=== PATIENT | male | born 1980 | race Caucasian/White ===

== ENCOUNTER 2018-06-11 11:13 | Inpatient (IN) | payer MEDICARE, MEDICAID ==
[~2018-06-11] VITALS: Ht 167.6 cm; Wt 103.1 kg
[2018-06-11] MEDS ORDERED: VANCOMYCIN INJECTION 1,000 MG in NS (IVPB) 250 ML IV STA (11:25)
[2018-06-11] MEDS ORDERED: LIDOCAINE 1% INJ 20 ML 20 ML VIAL INJ ONE (11:30)
[2018-06-11] MEDS ORDERED: AMPICILLIN/SULBACTAM INJECTION 3 GM in NS (IVPB) 100 ML IV ONE (11:30)
[2018-06-11] MEDS ORDERED: TETANUS,DIPTH,PERTUSS P/F (BOOSTRIX) 0.5 ML VIAL IM ONE (11:30)
[2018-06-11] MEDS ORDERED: KETOROLAC 30 MG/ML VIAL IVP ONE (11:30)
[2018-06-11] MEDS ORDERED: VANCOMYCIN 1000 MG/VIAL ONE (11:31)
--- NOTE | 2018-06-11 11:31 | ED Integumentary General ---
General Chief Complaint: Skin/Wound Problems Stated Complaint: RT ARM WOUND CHECK Source: patient, family Exam Limitations: no limitations History of Present Illness Date Seen by Provider: Jun 11, 2018 Time Seen by Provider: 11:15 Initial Comments The patient presents to ER by private conveyance with his parents and chief complaint that for little over a week he's had an abscess that opened up and started draining a couple days ago. They put him on some Bactrim that they had around the house but has progressively gotten worse. It started out on his right forearm and now has swelling and redness in his hand. He's been using Tylenol for pain control. He's had fevers above 101 according to mom. He is not having any nausea. No history of diabetes or immune system incompetence. He does not take any routine medicines. He does have a history of an abscess on the same arm years ago that got so bad that he had to have stitches to put the muscle tissue back together. He does not recall having a tetanus shot the last 5 years. He has no allergies to medicines. He does not smoke drink or use recreational drugs. Allergies and Home Medications Allergies Coded Allergies: No Known Drug Allergies (Unverified , 06/11/18) Home Medications Acetaminophen 500 Mg Tablet, 500-1,000 MG PO Q4H PRN for PAIN-MILD, (Reported) Patient Home Medication List Home Medication List Reviewed: Yes Review of Systems Review of Systems Constitutional: chills, fever, malaise EENTM: No ear discharge, No ear pain Respiratory: No cough, No phlegm Cardiovascular: No chest pain, No edema Gastrointestinal: No abdominal pain, No constipation, No diarrhea Genitourinary: No discharge, No dysuria Musculoskeletal: No back pain, No joint pain Skin: No pruritus, No rash Past Txdjjlg-Rcgbjl-Mlmfud Hx Patient Social History Alcohol Use: Denies Use Recreational Drug Use: No Smoking Status: Never a Smoker Physical Abuse: No Sexual Abuse: No Mistreated: No Past Medical History Surgeries: Yes (foot surgery, ) Orthopedic Physical Exam Vital Signs Vital Signs - First Documented 06/11/18 11:20 Temp 98.0 Pulse 88 Resp 18 B/P (MAP) 157/89 (111) Pulse Ox 100 Capillary Refill : General Appearance: WD/WN, no apparent distress HEENT: PERRL/EOMI, pharynx normal Cardiovascular: normal peripheral pulses, regular rate, rhythm (heart rate is 89), no edema Respiratory: no respiratory distress, no accessory muscle use Extremities: other (right upper extremity has swelling of the hand erythema and cellulitis of the distal right upper extremity as well as large opening with necrotic tissue surrounding a 1 x 2 cm opening that expresses purulence. There is a large area approximately 30% of the surface of the right forearm involvement with edema, erythema and tenderness to palpation.) Neurologic/Psychiatric: alert, oriented x 3 Procedures/Interventions I&D : Site: right forearm Blade Size: blunt dissection I & D Procedure: no betadine prep (chlorhexidine prep) Progress Patient's wound was already open and had drained by the time he came to us yesterday. We clean the site thoroughly using for exiting preps and then injected a ring block of lidocaine 4 cc around the opening. We then put 2 cc of the 1% lidocaine without epinephrine directly into the wound as a flush. After the lidocaine had a chance to work we then placed a sterile culture probe directly into the wound deep to obtain a sample and then used cotton tipped sterile swabs to remove about 5 cc of purulent/necrotic tissue. The wound was probed and loculations were broken up. There is not much purulence expressed but there is edema. We then flushed the wound thoroughly using approximately 500 cc of sterile saline. Patient tolerated the procedure okay. Toradol given for his discomfort. Progress/Results/Core Measures Results/Orders Lab Results Laboratory Tests Test 06/11/18 12:18 Range/Units White Blood Count 16.5 H 4.3-11.0 10^3/uL Red Blood Count 4.53 4.35-5.85 10^6/uL Hemoglobin 12.4 L 13.3-17.7 G/DL Hematocrit 37 L 40-54 % Mean Corpuscular Volume 81 80-99 FL Mean Corpuscular Hemoglobin 27 25-34 PG Mean Corpuscular Hemoglobin Concent 34 32-36 G/DL Red Cell Distribution Width 12.8 10.0-14.5 % Platelet Count 189 130-400 10^3/uL Mean Platelet Volume 9.5 7.4-10.4 FL Neutrophils (%) (Auto) 31 L 42-75 % Lymphocytes (%) (Auto) 64 H 12-44 % Monocytes (%) (Auto) 3 0-12 % Eosinophils (%) (Auto) 1 0-10 % Basophils (%) (Auto) 0 0-10 % Neutrophils # (Auto) 5.1 1.8-7.8 X 10^3 Lymphocytes # (Auto) 10.6 H 1.0-4.0 X 10^3 Monocytes # (Auto) 0.5 0.0-1.0 X 10^3 Eosinophils # (Auto) 0.2 0.0-0.3 10^3/uL Basophils # (Auto) 0.1 0.0-0.1 10^3/uL Neutrophils % (Manual) 25 % Lymphocytes % (Manual) 69 % Monocytes % (Manual) 3 % Eosinophils % (Manual) 1 % Basophils % (Manual) 1 % Band Neutrophils 1 % Blood Morphology Comment NORMAL Absolute Reticulocyte Count 24-90 10e9/L Percent Reticulocyte Count 0.50-2.40 % Prothrombin Time 14.0 12.2-14.7 SEC INR Comment 1.1 0.8-1.4 Activated Partial Thromboplast Time 29 24-35 SEC Sodium Level 137 135-145 MMOL/L Potassium Level 4.3 3.6-5.0 MMOL/L Chloride Level 101 98-107 MMOL/L Carbon Dioxide Level 25 21-32 MMOL/L Anion Gap 11 5-14 MMOL/L Blood Urea Nitrogen 9 7-18 MG/DL Creatinine 0.88 0.60-1.30 MG/DL Estimat Glomerular Filtration Rate > 60 BUN/Creatinine Ratio 10 Glucose Level 96 70-105 MG/DL Lactic Acid Level 0.82 0.50-2.00 MMOL/L Calcium Level 8.4 L 8.5-10.1 MG/DL Corrected Calcium 8.9 8.5-10.1 MG/DL Total Bilirubin 0.3 0.1-1.0 MG/DL Aspartate Amino Transf (AST/SGOT) 18 5-34 U/L Alanine Aminotransferase (ALT/SGPT) 23 0-55 U/L Alkaline Phosphatase 61 40-136 U/L Total Protein 6.6 6.4-8.2 GM/DL Albumin 3.4 3.2-4.5 GM/DL My Orders Orders - NILES ALVARADO Cbc With Automated Diff (06/11/18 11:25) Comprehensive Metabolic Panel (06/11/18 11:25) Dipht,Pertuss(Acell),Tet Adult (Boostrix (06/11/18 11:30) Ketorolac Injection (Toradol Injection) (06/11/18 11:30) Saline Lock/Iv-Start (06/11/18 11:25) Lidocaine 1% Inj 20 Ml (Xylocaine 1% Inj (06/11/18 11:30) Vancomycin Injection (Vancomycin Injecti (06/11/18 11:25) Ampicillin/Sulbactam Injection (Unasyn 3 (06/11/18 11:30) Lactic Acid Analyzer (06/11/18 11:31) Blood Culture (06/11/18 11:31) Vancomycin Injection (Vancomycin Injecti (06/11/18 11:31) Wound Culture (06/11/18 11:36) Ns (Ivpb) (Sodium Chloride 0.9%) (06/11/18 12:23) Manual Differential (06/11/18 12:18) Protime With Inr (06/11/18 12:40) Partial Thromboplastin Time (06/11/18 12:40) Vital Signs Adult Sepsis Patie Q15M (06/11/18 12:40) Remove Rings In Anticipation O (06/11/18 12:40) Ns Iv 1000 Ml (Sodium Chloride 0.9%) (06/11/18 12:40) Forearm 2 View Right (06/11/18 13:18) Oxycodone/Apap 5/325mg Tablet (Percocet (06/11/18 13:57) Oxycodone/Apap 5/325mg Tablet (Percocet (06/11/18 14:00) Medications Given in ED Current Medications Medications Dose Ordered Sig/Tone Route Start Time Stop Time Status Last Admin Dose Admin Ampicillin Sodium/ Sulbactam Sodium 3 gm/Sodium Chloride 100 ml @ 200 mls/hr ONCE ONCE IV 06/11/18 11:30 06/11/18 11:59 DC 06/11/18 12:51 200 MLS/HR Diphtheria/ Tetanus/Acell Pertussis 0.5 ml ONCE ONCE IM 06/11/18 11:30 06/11/18 11:31 DC 06/11/18 13:00 0.5 ML Ketorolac Tromethamine 30 mg ONCE ONCE IVP 06/11/18 11:30 06/11/18 11:31 DC 06/11/18 12:47 30 MG Lidocaine HCl 20 ml ONCE ONCE INJ 06/11/18 11:30 06/11/18 11:31 DC 06/11/18 12:59 20 ML Oxycodone/ Acetaminophen 1 tab ONCE ONCE PO 06/11/18 14:00 06/11/18 15:32 DC 06/11/18 14:03 1 TAB Vital Signs/I&O 06/11/18 11:20 Temp 98.0 Pulse 88 Resp 18 B/P (MAP) 157/89 (111) Pulse Ox 100 Progress Progress Note : Time: 11:35 Progress Note Plan to infiltrate the wound opening with lidocaine and attempted to probe gently using sterile cotton tip swabs. We will obtain a wound culture. We'll obtain blood cultures and basic labs. Vital signs are aseptic at this time but he is using Tylenol which could be masking a fever. We'll start with Toradol for his discomfort. Plan to initiate vancomycin and Unasyn. If his white count is elevated we will initiate some IV fluids as well as blood pressure is okay 157/89. Initial ECG Rate: 84 Diagnostic Imaging Diagonstic Imaging: Xray Plain Films/CT/US/NM/MRI: forearm Comments No acute osseous abnormality. No destructive lesions. Soft tissue swelling and edema seen. NAME: OMAR JONES MED REC#: [id number] PT STATUS: REG ER : 1980 PHYSICIAN: NILES ALVARADO MD ADMIT DATE: 06/11/18/ER FS Draft Date of Exam:06/11/18 FOREARM 2 VIEW RIGHT INDICATION: Abscess on forearm. TECHNIQUE: Two views of the right forearm. CORRELATION STUDY: None. FINDINGS: The radius and ulna have an unremarkable appearance. The visualized portions of the elbow and wrist are unremarkable. There is rather pronounced soft tissue edema and swelling suggested about the forearm, most pronounced at the proximal aspect. No definitive abnormal gas collection or radiographic evidence of a foreign body. IMPRESSION: Negative for acute bony abnormality of the forearm. Rather pronounced soft tissue swelling appears to be present at the proximal forearm. Dictated on workstation # [id number] Dict: 06/11/18 1338 Trans: 06/11/18 1355 [id number] Interpreted by: TREVOR FRAUSTO DO Electronically signed by: Reviewed: Reviewed by Me Departure Impression Primary Impression: Abscess Additional Impressions: Cellulitis Qualified Codes: L03.113 - Cellulitis of right upper limb Sepsis Qualified Codes: A41.9 - Sepsis, unspecified organism Disposition: XFER SHT-TRM HOSP Condition: Stable Admissions Decision to Admit Reason: Admit from ER (General) Decision to Admit/Date: Jun 11, 2018 Time/Decision to Admit Time: 13:00 Transfer Time Spoke to Accepting Phy: 13:[address] Belle Agreed to admit with surgical consult. Discussed case with Dr. Gonzalez and he agreed to do a surgical consult. Transfer Time: 14:27 Transfer Facility: [facility] [place], [place] Method of Transfer: EMS Departure-Patient Inst. Referrals: ANNA TALLEY MD (PCP/Family) Primary Care Physician NILES ALVARADO Jun 11, 2018 11:31
[2018-06-11] MEDS ORDERED: NS (IVPB) 250 ML ONE (12:23)
[2018-06-11 12:31] LABS: HEMOGLOBIN 12.4 G/DL (13.3-17.7); MEAN CORPUSCULAR HEMOGLOBIN 27 PG (25-34); WHITE BLOOD COUNT 16.5 10^3/uL (4.3-11.0)
[2018-06-11 12:32] LABS: BASOPHILS # (AUTO) 0.1 10^3/uL (0.0-0.1); BASOPHILS % (AUTO) 0 % (0-10); EOSINOPHILS # (AUTO) 0.2 10^3/uL (0.0-0.3); EOSINOPHILS % (AUTO) 1 % (0-10); HEMATOCRIT 37 % (40-54); LYMPHOCYTES # (AUTO) 10.6 X 10^3 (1.0-4.0); LYMPHOCYTES % (AUTO) 64 % (12-44); MEAN CORPUSCULAR HGB CONC 34 G/DL (32-36); MEAN CORPUSCULAR VOLUME 81 FL (80-99); MEAN PLATELET VOLUME 9.5 FL (7.4-10.4); MONOCYTES # (AUTO) 0.5 X 10^3 (0.0-1.0); MONOCYTES % (AUTO) 3 % (0-12); NEUTROPHILS # (AUTO) 5.1 X 10^3 (1.8-7.8); NEUTROPHILS % (AUTO) 31 % (42-75); PLATELET COUNT 189 10^3/uL (130-400); RED CELL DISTRIBUTION WIDTH 12.8 % (10.0-14.5)
[2018-06-11 12:52] LABS: ALANINE AMINOTRANSFERASE 23 U/L (0-55); ALBUMIN 3.4 GM/DL (3.2-4.5); ALKALINE PHOSPHATASE 61 U/L (40-136); BILIRUBIN,TOTAL 0.3 MG/DL (0.1-1.0); BUN/CREATININE RATIO 10; CALCIUM 8.4 MG/DL (8.5-10.1); CARBON DIOXIDE 25 MMOL/L (21-32); CHLORIDE 101 MMOL/L (98-107); CREATININE SERUM 0.88 MG/DL (0.60-1.30); GFR ESTIMATED > 60; GLUCOSE 96 MG/DL (70-105); POTASSIUM 4.3 MMOL/L (3.6-5.0); SODIUM 137 MMOL/L (135-145); TOTAL PROTEIN 6.6 GM/DL (6.4-8.2)
[2018-06-11 13:07] LABS: BAND NEUTROPHILS 1 %; BASOPHILS % (MANUAL) 1 %; EOSINOPHILS % (MANUAL) 1 %; LYMPHOCYTES % (MANUAL) 69 %; MONOCYTES % (MANUAL) 3 %; NEUTROPHILS % (MANUAL) 25 %; RBC MORPH NORMAL
[2018-06-11 13:09] LABS: INR 1.1 (0.8-1.4)
[2018-06-11] MEDS: NS IV 1000 ML 1,000 ML IV SCH ×2 (13:15→14:05)
--- NOTE | 2018-06-11 13:56 | Diagnostic Imaging Report ---
INDICATION: Abscess on forearm. TECHNIQUE: Two views of the right forearm. CORRELATION STUDY: None. FINDINGS: The radius and ulna have an unremarkable appearance. The visualized portions of the elbow and wrist are unremarkable. There is rather pronounced soft tissue edema and swelling suggested about the forearm, most pronounced at the proximal aspect. No definitive abnormal gas collection or radiographic evidence of a foreign body. IMPRESSION: Negative for acute bony abnormality of the forearm. Rather pronounced soft tissue swelling appears to be present at the proximal forearm. Dictated by: Dictated on workstation # [id number]
[2018-06-11] MEDS ORDERED: oxyCODONE/APAP 5/325MG (PERCOCET 5) TABLET ONE (13:57)
[2018-06-11] MEDS ORDERED: oxyCODONE/APAP 7.5-325 MG (PERCOCET 7.5) TABLET PO ONE (14:00)
[2018-06-11] MEDS ORDERED: oxyCODONE/APAP 5/325MG (PERCOCET 5) TABLET PO ONE (14:00)
--- NOTE | 2018-06-11 14:27 | NUR ---
Patient transferred at this time via [facility] to [facility].
[2018-06-11 15:13] VITALS: BP 159/90
[2018-06-11 15:19] VITALS: BP 158/90
[2018-06-11] MEDS ORDERED: VANCOMYCIN 1500 MG/NS 500 ML IVPB IV NR ×2 (15:34)
[2018-06-11] MEDS ORDERED: ONDANSETRON 4 MG/2 ML (SDV) Z0FRAN IV PRN (15:45)
[2018-06-11] MEDS ORDERED: KETOROLAC 15 MG/ML VIAL IV PRN (15:45)
[2018-06-11] MEDS ORDERED: ACETAMINOPHEN 325 MG TABLET PO PRN (15:45)
[2018-06-11] MEDS ORDERED: ACET-2267 PO (15:49)
--- NOTE | 2018-06-11 15:49 | NUR ---
VANCOMYCIN PHARMACY TO DOSE: BASED ON ADJ BW 79.5 & SCr 0.88, EST CrCl 127 LOADING DOSE: 1 GM GIVEN IN ED, ORDERED ADDITIONAL 1,500 MG. MAIN DOSE: 1,500 MG IV Q12HR VANCOMYCIN TROUGH ORDERED FOR 06/13/18 @ 02:00 IF TROUGH IS GREATER THAN 20 HOLD 06/13/18 03:00 DOSE.
[2018-06-11] MEDS: fentaNYL INJECTION 100 MCG/2 ML AMP IV PRN ×2 (16:22→23:30)
[2018-06-11 16:27] LABS: HEMATOCRIT 37 % (40-54); HEMOGLOBIN 12.4 G/DL (13.3-17.7); MEAN CORPUSCULAR HEMOGLOBIN 27 PG (25-34); MEAN CORPUSCULAR HGB CONC 34 G/DL (32-36); MEAN CORPUSCULAR VOLUME 81 FL (80-99); WHITE BLOOD COUNT 16.5 10^3/uL (4.3-11.0)
[2018-06-11 16:28] LABS: BASOPHILS # (AUTO) 0.1 10^3/uL (0.0-0.1); BASOPHILS % (AUTO) 0 % (0-10); EOSINOPHILS # (AUTO) 0.2 10^3/uL (0.0-0.3); EOSINOPHILS % (AUTO) 1 % (0-10); LYMPHOCYTES # (AUTO) 10.6 X 10^3 (1.0-4.0); LYMPHOCYTES % (AUTO) 64 % (12-44); MEAN PLATELET VOLUME 9.5 FL (7.4-10.4); MONOCYTES # (AUTO) 0.5 X 10^3 (0.0-1.0); MONOCYTES % (AUTO) 3 % (0-12); NEUTROPHILS # (AUTO) 5.1 X 10^3 (1.8-7.8); NEUTROPHILS % (AUTO) 31 % (42-75); PLATELET COUNT 189 10^3/uL (130-400); RED CELL DISTRIBUTION WIDTH 12.8 % (10.0-14.5)
[2018-06-11 16:30] VITALS: BP 160/110
[2018-06-11 16:33] LABS: BAND NEUTROPHILS 1 %; BASOPHILS % (MANUAL) 1 %; EOSINOPHILS % (MANUAL) 1 %; LYMPHOCYTES % (MANUAL) 69 %; MONOCYTES % (MANUAL) 3 %; NEUTROPHILS % (MANUAL) 25 %; RBC MORPH NORMAL
[2018-06-11] MEDS: ceFAZolin 2 GM/50 ML PRE-MIXED IVPB IV SCH ×2 (16:48→23:30)
[2018-06-11 16:50] VITALS: BP 142/99
[2018-06-11] MEDS: LACTATED RINGERS 1,000 ML IV SCH (18:34)
--- NOTE | 2018-06-11 18:47 | Consultation ---
History of Present Illness History of Present Illness Patient Consulted On(mayte/time) 06/11/18 18:41 Date Seen by Provider: Jun 11, 2018 Time Seen by Provider: 18:41 History of Present Illness consult for abscess/cellulitis right forearm notified by Dr. Last. patient is a 38 year old male with redness over right arm about 1 week. then had swelling and opened up about 2 days ago. Purulent drainage. Moderate pain to right arm. Had fevers. Culture obtained in ED. Patient has history of abscess before and at home started taking BActrim which didn't seem to be helping. Nothing making worse that he know. Denies n/v sweats chills shortness of breath or chest pain. Allergies and Home Medications Allergies Coded Allergies: No Known Drug Allergies (Unverified , 06/11/18) Home Medications Acetaminophen 500 Mg Tablet, 500-1,000 MG PO Q4H PRN for PAIN-MILD, (Reported) Patient Home Medication List Home Medication List Reviewed: Yes Past Orlogyd-Bmkdwt-Zgvnhh Hx Patient Social History Alcohol Use: Denies Use Recreational Drug Use: No Smoking Status: Never a Smoker Recent Foreign Travel: No Contact w/Someone Who Travel: No Recent Infectious Disease Expo: No Surgeries History of Surgeries: Yes (foot surgery, ) Surgeries: Orthopedic Respiratory History of Respiratory Disorde: No Cardiovascular History of Cardiac Disorders: No Neurological History of Neurological Disord: No Genitourinary History of Genitourinary Disor: No Gastrointestinal History of Gastrointestinal Di: No Musculoskeletal History of Musculoskeletal Dis: No Endocrine History of Endocrine Disorders: No HEENT History of HEENT Disorders: No Cancer History of Cancer: No Psychosocial History of Psychiatric Problem: No Integumentary History of Skin or Integumenta: Yes (abscess) Family Medical History Significant Family History: No Pertinent Family Hx Review of Systems-General Constitutional: see HPI, fever EENTM: no symptoms reported Respiratory: no symptoms reported Cardiovascular: no symptoms reported Gastrointestinal: no symptoms reported Genitourinary: no symptoms reported Musculoskeletal: no symptoms reported Skin: see HPI Psychiatric/Neurological: No Symptoms Reported Physical Exam-General Problems Physical Exam Vital Signs Vital Signs - First Documented 06/11/18 06/11/18 11:20 15:13 Temp 98.0 Pulse 88 Resp 18 B/P (MAP) 157/89 (111) Pulse Ox 100 O2 Delivery Room Air Capillary Refill : Less Than 3 Seconds General Appearance: no apparent distress HEENT: PERRL/EOMI, normal ENT inspection Neck: non-tender, full range of motion, supple Respiratory: chest non-tender, no respiratory distress, no accessory muscle use Cardiovascular: regular rate, rhythm Gastrointestinal: non tender, soft, no organomegaly Rectal: deferred Back: normal inspection Extremities: swelling, other (right arm erythema with about 1x3cm opening some purulent drainage and surrounding induration) Neurologic/Psychiatric: nursing faculty II-XII nml as tested, no motor/sensory deficits, alert, normal mood/affect, oriented x 3 Skin: normal color (except eythema right upper extremity), warm/dry Lymphatic: no adenopathy Data Review Labs Laboratory Tests 06/11/18 12:18: White Blood Count 16.5H, Red Blood Count 4.53, Hemoglobin 12.4L, Hematocrit 37L , Mean Corpuscular Volume 81, Mean Corpuscular Hemoglobin 27, Mean Corpuscular Hemoglobin Concent 34, Red Cell Distribution Width 12.8, Platelet Count 189, Mean Platelet Volume 9.5, Neutrophils (%) (Auto) 31L, Lymphocytes (%) (Auto) 64H , Monocytes (%) (Auto) 3, Eosinophils (%) (Auto) 1, Basophils (%) (Auto) 0, Neutrophils # (Auto) 5.1, Lymphocytes # (Auto) 10.6H, Monocytes # (Auto) 0.5, Eosinophils # (Auto) 0.2, Basophils # (Auto) 0.1, Neutrophils % (Manual) 25, Lymphocytes % (Manual) 69, Monocytes % (Manual) 3, Eosinophils % (Manual) 1, Basophils % (Manual) 1, Band Neutrophils 1, Blood Morphology Comment NORMAL, Absolute Reticulocyte Count , Percent Reticulocyte Count , Prothrombin Time 14.0 , INR Comment 1.1, Activated Partial Thromboplast Time 29, Sodium Level 137, Potassium Level 4.3, Chloride Level 101, Carbon Dioxide Level 25, Anion Gap 11, Blood Urea Nitrogen 9, Creatinine 0.88, Estimat Glomerular Filtration Rate > 60 , BUN/Creatinine Ratio 10, Glucose Level 96, Lactic Acid Level 0.82, Calcium Level 8.4L, Corrected Calcium 8.9, Total Bilirubin 0.3, Aspartate Amino Transf ( AST/SGOT) 18, Alanine Aminotransferase (ALT/SGPT) 23, Alkaline Phosphatase 61, Total Protein 6.6, Albumin 3.4 06/11/18 15:33: Assessment/Plan Assessment/Plan Assessment/Plan right arm cellulitis/abscess wound probed and loculation broken up daily wound care culture already obtained by ED packing daily antibiotics await cultures Clinical Quality Measures DVT/VTE Risk/Contraindication: Risk Factor Score Per Nursin RFS Level Per Nursing on Admit: 2=Moderate JARRETT MUNOZ DO Jun 11, 2018 18:46
[2018-06-11 19:03] VITALS: BP 134/89
[2018-06-11] MEDS: HYDROcodone/APAP 5 MG/325 MG (LORTAB) TAB PO PRN (20:30)
[2018-06-12] VITALS: BP 126/70
[2018-06-12] MEDS: VANCOMYCIN 1500 MG/NS 500 ML IVPB IV SCH ×4 (03:15→15:06)
[2018-06-12] MEDS: LACTATED RINGERS 1,000 ML IV SCH (03:15)
[2018-06-12 04:00] VITALS: BP 125/76
[2018-06-12 04:40] LABS: BASOPHILS % (AUTO) 0 % (0-10); EOSINOPHILS # (AUTO) 0.2 10^3/uL (0.0-0.3); EOSINOPHILS % (AUTO) 2 % (0-10); HEMATOCRIT 33 % (40-54); LYMPHOCYTES # (AUTO) 5.1 X 10^3 (1.0-4.0); LYMPHOCYTES % (AUTO) 60 % (12-44); MEAN CORPUSCULAR HEMOGLOBIN 27 PG (25-34); MEAN CORPUSCULAR HGB CONC 33 G/DL (32-36); MEAN CORPUSCULAR VOLUME 82 FL (80-99); MEAN PLATELET VOLUME 9.6 FL (7.4-10.4); MONOCYTES # (AUTO) 0.3 X 10^3 (0.0-1.0); MONOCYTES % (AUTO) 3 % (0-12); NEUTROPHILS # (AUTO) 2.9 X 10^3 (1.8-7.8); NEUTROPHILS % (AUTO) 35 % (42-75); PLATELET COUNT 146 10^3/uL (130-400); RED CELL DISTRIBUTION WIDTH 13.4 % (10.0-14.5); WHITE BLOOD COUNT 8.5 10^3/uL (4.3-11.0)
[2018-06-12 04:56] LABS: BUN/CREATININE RATIO 13; CALCIUM 8.1 MG/DL (8.5-10.1); CARBON DIOXIDE 20 MMOL/L (21-32); CHLORIDE 113 MMOL/L (98-107); CREATININE SERUM 0.75 MG/DL (0.60-1.30); GFR ESTIMATED > 60; GLUCOSE 125 MG/DL (70-105); POTASSIUM 3.8 MMOL/L (3.6-5.0); SODIUM 139 MMOL/L (135-145)
[2018-06-12 07:55] VITALS: BP 117/72
[2018-06-12] MEDS: ceFAZolin 2 GM/50 ML PRE-MIXED IVPB IV SCH ×3 (08:26→23:17)
[2018-06-12] MEDS: fentaNYL INJECTION 100 MCG/2 ML AMP IV PRN ×3 (08:27→18:26)
--- NOTE | 2018-06-12 09:58 | History & Physicial (CHS) ---
HPI History of Present Illness: Right forearm boil, popped and hole appeared, started about 2 days ago, no known injury or bite. Had similar on right outer arm a few years ago. [place] a little feverish and has a lot of pain. Date seen by provider: Jun 12, 2018 Time Seen by Provider: 09:55 Attending Physician Abebe Belle MD PCP Self,Iván VALDEZ Consult Date of Admission Jun 11, 2018 at 14:16 Home Medications Home Medications Reviewed patient Home Medication Reconciliation performed by pharmacy medication reconciliations heavy line technician and/or nursing. Patients Allergies have been reviewed. 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 Family Medical History Significant Family History: Heart Disease, Diabetes, Hypertension Review of Systems (CHC) Constitutional: fever; No malaise, No weight loss; other (denies night sweats) Respiratory: No cough, No short of breath Cardiovascular: No chest pain Gastrointestinal: No abdominal pain, No constipation, No diarrhea, No nausea, No vomiting Genitourinary: No dysuria Musculoskeletal: No joint pain Skin: see HPI Psychiatric/Neurological: Denies Emotional Problems Reviewed Test Results Reviewed Test Results Lab Laboratory Tests Test 06/11/18 12:18 06/11/18 15:33 06/12/18 04:05 Range/Units White Blood Count 16.5 H 8.5 4.3-11.0 10^3/uL Red Blood Count 4.53 4.01 L 4.35-5.85 10^6/uL Hemoglobin 12.4 L 11.0 L 13.3-17.7 G/DL Hematocrit 37 L 33 L 40-54 % Mean Corpuscular Volume 81 82 80-99 FL Mean Corpuscular Hemoglobin 27 27 25-34 PG Mean Corpuscular Hemoglobin Concent 34 33 32-36 G/DL Red Cell Distribution Width 12.8 13.4 10.0-14.5 % Platelet Count 189 146 130-400 10^3/uL Mean Platelet Volume 9.5 9.6 7.4-10.4 FL Neutrophils (%) (Auto) 31 L 35 L 42-75 % Lymphocytes (%) (Auto) 64 H 60 H 12-44 % Monocytes (%) (Auto) 3 3 0-12 % Eosinophils (%) (Auto) 1 2 0-10 % Basophils (%) (Auto) 0 0 0-10 % Neutrophils # (Auto) 5.1 2.9 1.8-7.8 X 10^3 Lymphocytes # (Auto) 10.6 H 5.1 H 1.0-4.0 X 10^3 Monocytes # (Auto) 0.5 0.3 0.0-1.0 X 10^3 Eosinophils # (Auto) 0.2 0.2 0.0-0.3 10^3/uL Basophils # (Auto) 0.1 0.0 0.0-0.1 10^3/uL Neutrophils % (Manual) 25 % Lymphocytes % (Manual) 69 % Monocytes % (Manual) 3 % Eosinophils % (Manual) 1 % Basophils % (Manual) 1 % Band Neutrophils 1 % Blood Morphology Comment NORMAL Absolute Reticulocyte Count 24-90 10e9/L Percent Reticulocyte Count 0.50-2.40 % Prothrombin Time 14.0 12.2-14.7 SEC INR Comment 1.1 0.8-1.4 Activated Partial Thromboplast Time 29 24-35 SEC Sodium Level 137 139 135-145 MMOL/L Potassium Level 4.3 3.8 3.6-5.0 MMOL/L Chloride Level 101 113 #H 98-107 MMOL/L Carbon Dioxide Level 25 20 L 21-32 MMOL/L Anion Gap 11 6 5-14 MMOL/L Blood Urea Nitrogen 9 10 7-18 MG/DL Creatinine 0.88 0.75 0.60-1.30 MG/DL Estimat Glomerular Filtration Rate > 60 > 60 BUN/Creatinine Ratio 10 13 Glucose Level 96 125 H 70-105 MG/DL Lactic Acid Level 0.82 0.50-2.00 MMOL/L Calcium Level 8.4 L 8.1 L 8.5-10.1 MG/DL Corrected Calcium 8.9 8.5-10.1 MG/DL Total Bilirubin 0.3 0.1-1.0 MG/DL Aspartate Amino Transf (AST/SGOT) 18 5-34 U/L Alanine Aminotransferase (ALT/SGPT) 23 0-55 U/L Alkaline Phosphatase 61 40-136 U/L Total Protein 6.6 6.4-8.2 GM/DL Albumin 3.4 3.2-4.5 GM/DL Radiology Xray forearm: IMPRESSION: Negative for acute bony abnormality of the forearm. Rather pronounced soft tissue swelling appears to be present at the proximal forearm. Physical Exam-([facility]) Physical Exam Vital Signs VS - Last 72 Hours, by Label 06/11/18 06/11/18 06/11/18 06/11/18 11:20 14:26 15:13 15:19 Temp 98.0 98.2 98.3 Pulse 88 76 79 Resp 18 16 16 B/P (MAP) 157/89 (111) 144/87 (106) 159/90 (113) Pulse Ox 100 99 100 O2 Delivery Room Air Room Air 06/11/18 06/11/18 06/11/18 06/11/18 15:19 16:30 16:50 19:03 Temp 98.3 98.3 98.6 98.4 Pulse 79 79 82 78 Resp 16 20 20 18 B/P (MAP) 158/90 160/110 (127) 142/99 (113) 134/89 (104) Pulse Ox 100 100 97 98 O2 Delivery Room Air Room Air Room Air Room Air 06/12/18 06/12/18 06/12/18 06/12/18 00:00 04:00 07:55 11:09 Temp 98.2 98.7 98.7 98.2 Pulse 78 70 78 73 Resp 18 18 18 18 B/P (MAP) 126/70 (88) 125/76 (92) 117/72 (87) 127/77 (94) Pulse Ox 96 98 97 97 O2 Delivery Room Air Room Air Room Air Room Air 06/12/18 16:10 Temp 98.4 Pulse 74 Resp 18 B/P (MAP) 135/78 (97) Pulse Ox 99 O2 Delivery Room Air Capillary Refill : Less Than 3 Seconds General Appearance: no apparent distress Respiratory: lungs clear, normal breath sounds Cardiovascular: regular rate, rhythm, no murmur Gastrointestinal: normal bowel sounds, non tender, soft Extremities: no pedal edema Neurologic/Psychiatric: alert, normal mood/affect Skin: other (ulceration with packing in palce about 2 cm in diameter on right forearm with surrounding erythema to shoulder) Assessment/Plan Assessment/Plan Admission Dx Cellulitis with ulceration Admission Status: Inpatient Order (span 2 midnights) Reason for Inpatient Admission: Severe infection with possible need for surgical intevention requiring iv antibiotics. (1) Cellulitis Status: Acute Assessment & Plan: With large ulceration, surgery consulted and wound care consulted. Started on vancomycin and cefazolin. Qualifiers: Qualified Codes: L03.113 - Cellulitis of right upper limb (2) Lymphocytosis Status: Acute Assessment & Plan: Overall could consider leukocytosis related to sepsis, however, he has marked lymphocyte predominance with atypical lymphocytes per Path which is not expected with bacterial infection. Peripheral smear and flow cytometry pending. (3) DVT prophylaxis Status: Acute Assessment & Plan: Enoxaparin Clinical Quality Measures DVT/VTE Risk/Contraindication: Risk Factor Score Per Nursin RFS Level Per Nursing on Admit: 2=Moderate ABEBE BELLE MD Jun 12, 2018 09:58
[2018-06-12 11:09] VITALS: BP 127/77
[2018-06-12] MEDS: ENOXAPARIN 40 MG/0.4 ML (LOVENOX) SYR SC SCH (12:00)
[2018-06-12 16:10] VITALS: BP 135/78
--- NOTE | 2018-06-12 18:14 | Wound Care Assessment ---
Wound Care Assessment Date Seen by Provider: Jun 12, 2018 Time Seen by Provider: 18:11 Chief Complaint Abscess R forearm. HPI 38 year old male with drained abscess R forearm. He is being followed by Dr. Gonzalez. I will defer to his care plan. I remain available if needed. Smoking Status: Never a Smoker Recreational Drug Use: No Alcohol Use: Denies Use Exam Vital Signs Date Time Temp Pulse Resp B/P (MAP) Pulse Ox O2 Delivery O2 Flow Rate FiO2 06/12/18 16:10 98.4 74 18 135/78 (97) 99 Room Air Capillary Refill : Less Than 3 Seconds Results Laboratory Tests 06/12/18 04:05: White Blood Count 8.5, Red Blood Count 4.01L, Hemoglobin 11.0L, Hematocrit 33L, Mean Corpuscular Volume 82, Mean Corpuscular Hemoglobin 27, Mean Corpuscular Hemoglobin Concent 33, Red Cell Distribution Width 13.4, Platelet Count 146, Mean Platelet Volume 9.6, Neutrophils (%) (Auto) 35L, Lymphocytes (%) (Auto) 60H , Monocytes (%) (Auto) 3, Eosinophils (%) (Auto) 2, Basophils (%) (Auto) 0, Neutrophils # (Auto) 2.9, Lymphocytes # (Auto) 5.1H, Monocytes # (Auto) 0.3, Eosinophils # (Auto) 0.2, Basophils # (Auto) 0.0, Sodium Level 139, Potassium Level 3.8, Chloride Level 113#H, Carbon Dioxide Level 20L, Anion Gap 6, Blood Urea Nitrogen 10, Creatinine 0.75, Estimat Glomerular Filtration Rate > 60, BUN/ Creatinine Ratio 13, Glucose Level 125H, Calcium Level 8.1L Microbiology 06/11/18 Blood Culture - Preliminary, Resulted No growth 06/11/18 Gram Stain - Final, Resulted 06/11/18 Wound Culture - Preliminary, Resulted Culture In Progress Microbiology 06/11/18 Blood Culture - Preliminary, Resulted No growth 06/11/18 Blood Culture - Preliminary, Resulted Probable Coag Negative Staph 06/11/18 Gram Stain - Final, Resulted 06/11/18 Wound Culture - Preliminary, Resulted Culture In Progress Assessment/Plan/Dx 1. Abscess R forearm. Plan: As per Dr. Gonzalez. JOSE ROBERTO ANDRADE MD Jun 12, 2018 18:14
--- NOTE | 2018-06-12 19:25 | Progress Note ---
Subjective Date Seen by a Provider: Jun 12, 2018 Time Seen by a Provider: 16:45 Subjective/Events-last exam patient arm feeling better today. less erythema and drainage. wbc down. denies any new complaints. denies n/v fever sweats chills shortness of breath or chest pain at this time. Focused Exam Lactate Level 06/11/18 12:18: Lactic Acid Level 0.82 Objective Exam Vital Signs Date Time Temp Pulse Resp B/P (MAP) Pulse Ox O2 Delivery O2 Flow Rate FiO2 06/12/18 16:10 98.4 74 18 135/78 (97) 99 Room Air 06/12/18 11:09 98.2 73 18 127/77 (94) 97 Room Air 06/12/18 07:55 98.7 78 18 117/72 (87) 97 Room Air 06/12/18 04:00 98.7 70 18 125/76 (92) 98 Room Air 06/12/18 00:00 98.2 78 18 126/70 (88) 96 Room Air I & O 06/12/18 06:59 Intake Total 2430 ml Balance 2430 ml Capillary Refill : Less Than 3 Seconds General Appearance: No Apparent Distress HEENT: PERRL/EOMI Neck: Normal Inspection Respiratory: Chest Non Tender, No Accessory Muscle Use, No Respiratory Distress Cardiovascular: Regular Rate, Rhythm Gastrointestinal: non tender, soft Extremity: Other (right upper extremity less erythema and wound packed. less induration) Neurologic/Psychiatric: Alert, Oriented x3, No Motor/Sensory Deficits, Normal Mood/Affect, cotton stomper II-XII Norm as Tested Skin: Warm/Dry (erythema right upper extremity) Results Lab Laboratory Tests 06/12/18 04:05: White Blood Count 8.5, Red Blood Count 4.01L, Hemoglobin 11.0L, Hematocrit 33L, Mean Corpuscular Volume 82, Mean Corpuscular Hemoglobin 27, Mean Corpuscular Hemoglobin Concent 33, Red Cell Distribution Width 13.4, Platelet Count 146, Mean Platelet Volume 9.6, Neutrophils (%) (Auto) 35L, Lymphocytes (%) (Auto) 60H , Monocytes (%) (Auto) 3, Eosinophils (%) (Auto) 2, Basophils (%) (Auto) 0, Neutrophils # (Auto) 2.9, Lymphocytes # (Auto) 5.1H, Monocytes # (Auto) 0.3, Eosinophils # (Auto) 0.2, Basophils # (Auto) 0.0, Sodium Level 139, Potassium Level 3.8, Chloride Level 113#H, Carbon Dioxide Level 20L, Anion Gap 6, Blood Urea Nitrogen 10, Creatinine 0.75, Estimat Glomerular Filtration Rate > 60, BUN/ Creatinine Ratio 13, Glucose Level 125H, Calcium Level 8.1L Microbiology 06/11/18 Blood Culture - Preliminary, Resulted No growth 06/11/18 Gram Stain - Final, Resulted 06/11/18 Wound Culture - Preliminary, Resulted Culture In Progress Assessment/Plan Assessment/Plan Assessment/Plan right arm cellulitis/abscess daily wound care culture already obtained by ED packing daily antibiotics await cultures pain control Clinical Quality Measures DVT/VTE Risk/Contraindication: Risk Factor Score Per Nursin RFS Level Per Nursing on Admit: 2=Moderate JARERTT MUNOZ DO Jun 12, 2018 19:25
[2018-06-12 20:25] VITALS: BP 174/98
[2018-06-12] MEDS: HYDROcodone/APAP 5 MG/325 MG (LORTAB) TAB PO PRN (23:18)
[2018-06-13 00:08] VITALS: BP 158/90
[2018-06-13] MEDS ORDERED: TROUGH ORDER-PHARMACY XX NR (02:00)
[2018-06-13 02:22] LABS: BASOPHILS % (AUTO) 0 % (0-10); EOSINOPHILS # (AUTO) 0.3 10^3/uL (0.0-0.3); EOSINOPHILS % (AUTO) 2 % (0-10); HEMATOCRIT 35 % (40-54); LYMPHOCYTES # (AUTO) 8.9 X 10^3 (1.0-4.0); LYMPHOCYTES % (AUTO) 68 % (12-44); MEAN CORPUSCULAR HEMOGLOBIN 28 PG (25-34); MEAN CORPUSCULAR HGB CONC 35 G/DL (32-36); MEAN CORPUSCULAR VOLUME 80 FL (80-99); MEAN PLATELET VOLUME 9.1 FL (7.4-10.4); MONOCYTES # (AUTO) 0.3 X 10^3 (0.0-1.0); MONOCYTES % (AUTO) 3 % (0-12); NEUTROPHILS # (AUTO) 3.5 X 10^3 (1.8-7.8); NEUTROPHILS % (AUTO) 27 % (42-75); PLATELET COUNT 162 10^3/uL (130-400); RED CELL DISTRIBUTION WIDTH 12.7 % (10.0-14.5)
[2018-06-13 02:43] LABS: ALANINE AMINOTRANSFERASE 32 U/L (0-55); ALBUMIN 3.4 GM/DL (3.2-4.5); ALKALINE PHOSPHATASE 62 U/L (40-136); BILIRUBIN,TOTAL 0.2 MG/DL (0.1-1.0); BUN/CREATININE RATIO 10; CALCIUM 8.9 MG/DL (8.5-10.1); CARBON DIOXIDE 25 MMOL/L (21-32); CHLORIDE 105 MMOL/L (98-107); GFR ESTIMATED > 60; GLUCOSE 95 MG/DL (70-105); SODIUM 138 MMOL/L (135-145); TOTAL PROTEIN 6.1 GM/DL (6.4-8.2)
[2018-06-13] MEDS: VANCOMYCIN 1500 MG/NS 500 ML IVPB IV SCH ×2 (03:16)
[2018-06-13 04:42] VITALS: BP 156/96
[2018-06-13 08:00] VITALS: BP 157/108
[2018-06-13] MEDS: HYDROcodone/APAP 5 MG/325 MG (LORTAB) TAB PO PRN (08:09)
[2018-06-13] MEDS: ceFAZolin 2 GM/50 ML PRE-MIXED IVPB IV SCH (08:39)
--- NOTE | 2018-06-13 10:22 | Progress Note (SOAP) ---
Subjective Subjective/Events-last exam Afebrile, hypertensive this am. He is hoping to go home today, reports feeling much better. present today and states he has been diagnosed with chronic hep B and C and been referred to ID but has not seen them yet. Review of Systems Date Seen by Provider: Jun 13, 2018 Time Seen by Provider: 09:23 Focused Exam Lactate Level 06/11/18 12:18: Lactic Acid Level 0.82 Objective Exam Last Set of Vital Signs Vital Signs Date Time Temp Pulse Resp B/P (MAP) Pulse Ox O2 Delivery O2 Flow Rate FiO2 06/13/18 08:00 97.2 87 18 157/108 (124) 98 Room Air Capillary Refill : Less Than 3 Seconds I&O Intake and Output 06/13/18 00:00 Intake Total 2785 ml Balance 2785 ml Intake Oral 1220 ml IV Total 1565 ml # Voids 7 # Bowel Movements 3 General: Alert, No Acute Distress Lungs: Clear to Auscultation, Normal Air Movement Heart: Regular Rate, No Murmurs Skin: Other (forearm recently wrapped, no exudate on dressing, no erythema outside of dressing) Psych/Mental Status: Mental Status NL Results/Procedures Lab Laboratory Tests 06/13/18 02:15: White Blood Count 13.0H, Red Blood Count 4.30L, Hemoglobin 12.0L, Hematocrit 35L , Mean Corpuscular Volume 80, Mean Corpuscular Hemoglobin 28, Mean Corpuscular Hemoglobin Concent 35, Red Cell Distribution Width 12.7, Platelet Count 162, Mean Platelet Volume 9.1, Neutrophils (%) (Auto) 27L, Lymphocytes (%) (Auto) 68H , Monocytes (%) (Auto) 3, Eosinophils (%) (Auto) 2, Basophils (%) (Auto) 0, Neutrophils # (Auto) 3.5, Lymphocytes # (Auto) 8.9H, Monocytes # (Auto) 0.3, Eosinophils # (Auto) 0.3, Basophils # (Auto) 0.0, Sodium Level 138, Potassium Level 4.0, Chloride Level 105, Carbon Dioxide Level 25, Anion Gap 8, Blood Urea Nitrogen 8, Creatinine 0.80, Estimat Glomerular Filtration Rate > 60, BUN/ Creatinine Ratio 10, Glucose Level 95, Calcium Level 8.9, Corrected Calcium 9.4 , Total Bilirubin 0.2, Aspartate Amino Transf (AST/SGOT) 23, Alanine Aminotransferase (ALT/SGPT) 32, Alkaline Phosphatase 62, Total Protein 6.1L, Albumin 3.4, Vancomycin Level Trough 9.7L Microbiology 06/11/18 Blood Culture - Preliminary, Resulted No growth 06/11/18 Gram Stain - Final, Resulted 06/11/18 Wound Culture - Preliminary, Resulted Culture In Progress Radiology Xray forearm: IMPRESSION: Negative for acute bony abnormality of the forearm. Rather pronounced soft tissue swelling appears to be present at the proximal forearm. Assessment/Plan Assessment/Plan (1) Cellulitis Status: Acute Assessment & Plan: With large ulceration, surgery consulted and wound care consulted. Started on vancomycin and cefazolin. 06/13 marked improvement, may be able to d/c today, pending Onc consult. Qualifiers: Qualified Codes: L03.113 - Cellulitis of right upper limb (2) Lymphocytosis Status: Acute Assessment & Plan: Overall could consider leukocytosis related to sepsis, however, he has marked lymphocyte predominance with atypical lymphocytes per Path which is not expected with bacterial infection. Peripheral smear and flow cytometry pending. (3) CLL (chronic lymphocytic leukemia) Assessment & Plan: 06/13 received call from Pathology last night that flow cytometry is consistent with CLL. Oncology consulted for recommendations/plan before d/c. (4) Hepatitis B Status: Chronic Assessment & Plan: Has outpatient referral to ID already (5) Hepatitis C Status: Chronic Assessment & Plan: Has outpatient referral to ID already (6) DVT prophylaxis Status: Acute Assessment & Plan: Enoxaparin Clinical Quality Measures DVT/VTE Risk/Contraindication: Risk Factor Score Per Nursin RFS Level Per Nursing on Admit: 2=Moderate ABEBE JORDAN MD Jun 13, 2018 10:22
[2018-06-13] MEDS ORDERED: CEPH500T PO (10:24)
--- NOTE | 2018-06-13 10:49 | Progress Note ---
Subjective Date Seen by a Provider: Jun 13, 2018 Time Seen by a Provider: 10:47 Subjective/Events-last exam Feeling better. Less erythema. Pain better. Denies any new complaints. Denies n/v fever sweats chills shortness of breath or chest pain. Cultures pending. wbc up today. Focused Exam Lactate Level 06/11/18 12:18: Lactic Acid Level 0.82 Objective Exam Vital Signs Date Time Temp Pulse Resp B/P (MAP) Pulse Ox O2 Delivery O2 Flow Rate FiO2 06/13/18 08:00 97.2 87 18 157/108 (124) 98 Room Air 06/13/18 04:42 97.1 88 18 156/96 (116) 100 Room Air 06/13/18 00:08 98.7 89 18 158/90 (112) 100 Room Air 06/12/18 20:25 97.5 98 18 174/98 (123) 100 Room Air 06/12/18 16:10 98.4 74 18 135/78 (97) 99 Room Air 06/12/18 11:09 98.2 73 18 127/77 (94) 97 Room Air I & O 06/13/18 07:00 Intake Total 3185 ml Balance 3185 ml Capillary Refill : Less Than 3 Seconds General Appearance: No Apparent Distress HEENT: PERRL/EOMI Neck: Normal Inspection Respiratory: Chest Non Tender, No Accessory Muscle Use, No Respiratory Distress Cardiovascular: Regular Rate, Rhythm Gastrointestinal: non tender, soft Extremity: Other (right upper extremity less erythema and 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, still indurated around wound) Neurologic/Psychiatric: Alert, Oriented x3, No Motor/Sensory Deficits, Normal Mood/Affect, global security architect II-XII Norm as Tested Skin: Warm/Dry (erythema right upper extremity less) Results Lab Laboratory Tests 06/13/18 02:15: White Blood Count 13.0H, Red Blood Count 4.30L, Hemoglobin 12.0L, Hematocrit 35L , Mean Corpuscular Volume 80, Mean Corpuscular Hemoglobin 28, Mean Corpuscular Hemoglobin Concent 35, Red Cell Distribution Width 12.7, Platelet Count 162, Mean Platelet Volume 9.1, Neutrophils (%) (Auto) 27L, Lymphocytes (%) (Auto) 68H , Monocytes (%) (Auto) 3, Eosinophils (%) (Auto) 2, Basophils (%) (Auto) 0, Neutrophils # (Auto) 3.5, Lymphocytes # (Auto) 8.9H, Monocytes # (Auto) 0.3, Eosinophils # (Auto) 0.3, Basophils # (Auto) 0.0, Sodium Level 138, Potassium Level 4.0, Chloride Level 105, Carbon Dioxide Level 25, Anion Gap 8, Blood Urea Nitrogen 8, Creatinine 0.80, Estimat Glomerular Filtration Rate > 60, BUN/ Creatinine Ratio 10, Glucose Level 95, Calcium Level 8.9, Corrected Calcium 9.4 , Total Bilirubin 0.2, Aspartate Amino Transf (AST/SGOT) 23, Alanine Aminotransferase (ALT/SGPT) 32, Alkaline Phosphatase 62, Total Protein 6.1L, Albumin 3.4, Vancomycin Level Trough 9.7L Microbiology 06/11/18 Blood Culture - Preliminary, Resulted No growth 06/11/18 Gram Stain - Final, Resulted 06/11/18 Wound Culture - Preliminary, Resulted Culture In Progress Assessment/Plan Assessment/Plan Assessment/Plan right arm cellulitis/abscess daily wound care irrigate and pack culture already obtained by ED pending packing daily antibiotics await cultures pain control Clinical Quality Measures DVT/VTE Risk/Contraindication: Risk Factor Score Per Nursin RFS Level Per Nursing on Admit: 2=Moderate JARRETT MUNOZ DO Jun 13, 2018 10:48
[2018-06-13] MEDS ORDERED: VANCOMYCIN 1500 MG/NS 500 ML IVPB IV SCH ×2 (11:00)
[2018-06-13] MEDS: ENOXAPARIN 40 MG/0.4 ML (LOVENOX) SYR SC SCH (11:25)
[2018-06-13 12:00] VITALS: BP 172/98
[2018-06-13] MEDS ORDERED: HYDR25TA4 PO (13:00)
--- NOTE | 2018-06-13 13:00 | NUR ---
Patient has blood pressure of 172/98 manually taken by this nurse. Dr. Belle notified and order received for HCTZ 25mg po daily. Med also added to discharge packet and called to [facility] in [place]. Patient understanding that he is to take the new med one daily. Patient and denies any questions at this time.
[2018-06-13] MEDS ORDERED: HYDROCHLOROTHIAZIDE 25 MG (HCTZ) TAB PO SCH (13:32)
--- NOTE | 2018-06-13 13:32 | Consultation ---
History of Present Illness History of Present Illness Patient Consulted On(mayte/time) 06/13/18 13:27 Date Seen by Provider: Jun 13, 2018 Time Seen by Provider: 13:28 History of Present Illness Mr. Maldonado is a 38 yo male with history of recurrent severe infections who was admitted on 06/11/18 with a 4-day history of proximal right forearm cellulitis and abscess. He had a previous deep-seated abscess a couple years ago that required I&D, and he also had an admission several years ago for sepsis. At that time, he was diagnosed with hepatitis B and C, but he did not follow up on the diagnoses because he subsequently moved the [facility]. Patient's abscess ruptured spontaneously and is being managed by wound care. He is on IV antibiotics. During his admission, patient was noted to have abnormally elevated peripheral lymphocytes and flow cytometry confirmed clonality. Patient and report that even prior to the infection, patient had developed significant symptoms over the last 2 months, including severe fatigue, loss of appetite and weight loss. He denied any adenopathy. Allergies and Home Medications Allergies Coded Allergies: No Known Drug Allergies (Unverified , 06/11/18) Home Medications Acetaminophen 500 Mg Tablet, 500-1,000 MG PO Q4H PRN for PAIN-MILD, (Reported) Cephalexin 500 Mg Tablet, 500 MG PO Q6H Prescribed by: ABEBE JORDAN on 06/13/18 1024 Hydrochlorothiazide 25 Mg Tablet, 25 MG PO DAILY PRN for BLOOD PRESSURE Prescribed by: MARKIE CONTRERAS on 06/13/18 1300 Patient Home Medication List Home Medication List Reviewed: Yes Past Qvbewqw-Xibfnw-Ekqqku Hx Patient Social History Alcohol Use: Denies Use Recreational Drug Use: No Smoking Status: Never a Smoker Recent Foreign Travel: No Contact w/Someone Who Travel: No Recent Infectious Disease Expo: No Physical Abuse: No Sexual Abuse: No Mistreated: No Past Medical History Surgeries: Yes (foot surgery, ) Orthopedic Respiratory: No Cardiac: No Neurological: No Genitourinary: No Gastrointestinal: No Musculoskeletal: No Endocrine: No HEENT: No Cancer: No Psychosocial: No Integumentary: Yes (abscess) Family Medical History Heart Disease, Diabetes, Hypertension Review of Systems-General Constitutional: see HPI EENTM: no symptoms reported Respiratory: no symptoms reported Cardiovascular: no symptoms reported Gastrointestinal: see HPI Genitourinary: no symptoms reported Musculoskeletal: no symptoms reported Skin: see HPI Physical Exam-General Problems Physical Exam Vital Signs Vital Signs - First Documented 06/11/18 06/11/18 11:20 15:13 Temp 98.0 Pulse 88 Resp 18 B/P (MAP) 157/89 (111) Pulse Ox 100 O2 Delivery Room Air Capillary Refill : Less Than 3 Seconds General Appearance: WD/WN, no apparent distress Eyes: Bilateral Eye Normal Inspection, Bilateral Eye EOMI HEENT: normal ENT inspection, pharynx normal Neck: non-tender, full range of motion, supple, normal inspection; No lymphadenopathy (R), No lymphadenopathy (L) Respiratory: chest non-tender, lungs clear, normal breath sounds, no respiratory distress, no accessory muscle use Cardiovascular: regular rate, rhythm, no edema, no murmur Gastrointestinal: normal bowel sounds, non tender, soft, no organomegaly Extremities: normal range of motion, non-tender, normal inspection, no pedal edema Neurologic/Psychiatric: home comfort advisor II-XII nml as tested, no motor/sensory deficits, alert, normal mood/affect, oriented x 3 Skin: normal color, warm/dry, other (right forearm cellulitis with extensive erythema and swelling, entire armed in dressings with drainage on dressings near elbow) Lymphatic: other (right axillary and inguinal lymph nodes, ~1cm, mobile, nontender) Assessment/Plan Assessment/Plan Admission Diagnosis/Plan 38 yo male with history of recurrent infections, hepatitis B and C who was diagnosed with CLL incidentally on admission for cellulitis and abscess. Likely Raymond stage I. It appears he is having constitutional symptoms consistent with malignancy, but I would like to see the patient in clinic after his infection has resolved. We will order prognostic testing on his blood and quantitative immunoglobulins to somewhat assess immune function. He will need to see ID or hepatology for treatment of his viral hepatitis before we can do any treatment for his CLL. Clinical Quality Measures DVT/VTE Risk/Contraindication: Risk Factor Score Per Nursin RFS Level Per Nursing on Admit: 2=Moderate CHRISTINA DACOSTA MD Jun 13, 2018 13:32
--- NOTE | 2018-06-13 13:40 | NUR ---
OMAR JONES demonstrates understanding of discharge instructions and accurately returns instructions upon questioning. Copy of Post-Discharge Instructions and Medication Discharge Instructions given to . OMAR JONES is/is not able to manage continuing needs after discharge. Patients belongings returned to patient. Skin dry and intact; no breakdown noted. Patient discharged from [facility]- on 06/13/18 at 1340 . OMAR JONES left floor via wheelchair, accompanied by staff.
[2018-06-13 14:27] VITALS: BP 172/98
[2018-06-14] MEDS ORDERED: TROUGH ORDER-PHARMACY XX NR (10:00)
--- NOTE | 2018-06-14 15:20 | Discharge Summary ---
Diagnosis/Chief Complaint Date of Admission Jun 11, 2018 at 14:16 Date of Discharge Jun 13, 2018 at 13:40 Admission Diagnosis Admission Diagnosis Abscess/cellulitis Lymphocytosis Discharge Diagnosis See problem list Problems/Diagnosis: (1) Cellulitis Assessment & Plan: With large ulceration, surgery consulted and wound care consulted. Started on vancomycin and cefazolin. 06/13 marked improvement discharged on cephalexin Qualifiers: Qualified Codes: L03.113 - Cellulitis of right upper limb Status: Acute (2) CLL (chronic lymphocytic leukemia) Assessment & Plan: 06/13 received call from Pathology last night that flow cytometry is consistent with CLL. Oncology consulted for recommendations/plan before d/c. Oncology met with patient and will plan for outpatient follow up and further work-up. (3) Hepatitis B Assessment & Plan: Has outpatient referral to ID already Status: Chronic (4) Hepatitis C Assessment & Plan: Has outpatient referral to ID already Status: Chronic Chief Complaint/HPI Chief Complaint/HPI Right forearm boil, popped and hole appeared, started about 2 days ago, no known injury or bite. Had similar on right outer arm a few years ago. [place] a little feverish and has a lot of pain. Discharge Summary-Simple/Stand Consultations Discharge Physical Examination Allergies: Coded Allergies: No Known Drug Allergies (Unverified , 06/11/18) Vitals & I&Os Vital Sign - Last 12Hours Date Time Temp Pulse Resp B/P (MAP) Pulse Ox O2 Delivery O2 Flow Rate FiO2 06/13/18 14:27 89 20 172/98 97 Room Air 06/13/18 12:00 97.4 Hospital Course See final discharge diagnosis. Radiology Reviewed Xray forearm: IMPRESSION: Negative for acute bony abnormality of the forearm. Rather pronounced soft tissue swelling appears to be present at the proximal forearm. Discharge Instructions to patient/family Please see electronic discharge instructions given to patient. Discharge Medications Reviewed and agree with Discharge Medication list on patient's Discharge Instruction sheet Clinical Quality Measures DVT/VTE Risk/Contraindication: Risk Factor Score Per Nursin RFS Level Per Nursing on Admit: 2=Moderate Copy Copies To 1: SELF,ABEBE DAVID MD, MD Jun 14, 2018 15:20
--- NOTE | 2018-06-14 15:21 | Discharge Instructions ---
Discharge [facility] Discharge Medications New, Converted or Re-Newed RX: Transmitted to Pharmacy New Medications: Cephalexin (Cephalexin) 500 Mg Tablet 500 MG PO Q6H for 10 Days, #40 TAB 0 Refills Continued Medications: Acetaminophen (Tylenol Extra Strength) 500 Mg Tablet 500-1000 MG PO Q4H PRN for PAIN-MILD, TAB Patient Instructions Goal/Follow Up Appt: Follow up with Dr. Aguila on 06/18 at 10:45 am. Go to clinic tomorrow for packing/dressing change for your wound. Return to The Hospital For: Fever, worsening redness or drainage from arm Activity & Diet Discharge Diet: Regular Diet Activity as Tolerated: Yes Copy Copies To 1: ANNA AGUILA MD, BETHANY N MD Jun 13, 2018 10:29
== END 2018-06-13 13:40 | disposition home or self-care (01) | DRG 580 ==
LOC: ER FS 11:18 → UNDOADMIN 13:43 → 4TH 13:43
PROVIDERS: ADMIT Family Medicine; ATTEND Family Medicine
PROC: 0JDG0ZZ Extraction of Right Lower Arm Subcutaneous Tissue and Fascia, Open Approach (ICD-10-PCS; principal; 2018-06-11)
DX: L03.113 Cellulitis of right upper limb (principal); L02.413 Cutaneous abscess of right upper limb; C91.10 Chronic lymphocytic leukemia of B-cell type not having achieved remission; B18.1 Chronic viral hepatitis B without delta-agent; B18.2 Chronic viral hepatitis C
CPT/HCPCS: 10060; 36415; 73090; 80048; 80053; 80202; 82784; 83605; 85007; 85025; 85027; 85045; 85610; 85730; 87040; 87070; 87077; 87181; 87184; 87186; 87205; 88184; 88185; 88377; 90471; 90715; 96361; 96365; 96367; 96375

== ENCOUNTER 2018-08-02 22:31 | Emergency (ER) | payer MEDICARE ==
[~2018-08-02] VITALS: Ht 165.1 cm; Wt 98.4 kg
[~2018-08-02 22:31] MED LIST: ACET-2267 PO; CEPH500T PO; HYDR25TA4 PO
[2018-08-02] MEDS ORDERED: DEXAMETHASONE 10 MG/ML (DECADRON) 1 ML VIAL IV ONE (22:45)
[2018-08-02] MEDS ORDERED: cefTRIAXone FOR IV USE 2,000 MG in WATER (STERILE) FOR INJECTION 20 ML IV ONE (22:45)
--- NOTE | 2018-08-02 22:48 | ED Respiratory ---
General Chief Complaint: Respiratory Problems Stated Complaint: THROAT SWOLLEN, SOB Source: patient, family History of Present Illness Date Seen by Provider: August 02, 2018 Time Seen by Provider: 10:37 Initial Comments 38-year-old male presents because he is having a hard time swallowing and feeling short of breath. Patient has a swollen throat. Family reports that he been battling strep for about 2 weeks. He was seen by his primary care earlier and had his antibiotics changed. Patient presents today because he get more difficult for him to breathe feels like his throat is more swollen. There is no reports of fever, chills, nausea, vomiting or diarrhea. Patient does have a history of CLL. Allergies and Home Medications Allergies Coded Allergies: tramadol (Verified Allergy, Unknown, 08/02/18) Home Medications Acetaminophen 500 Mg Tablet, 500-1,000 MG PO Q4H PRN for PAIN-MILD, (Reported) Cephalexin 500 Mg Tablet, 500 MG PO Q6H Prescribed by: ABEBE JORDAN on 06/13/18 1024 Hydrochlorothiazide 25 Mg Tablet, 25 MG PO DAILY PRN for BLOOD PRESSURE Prescribed by: MARKIE CONTRERAS on 06/13/18 1300 Patient Home Medication List Home Medication List Reviewed: Yes Review of Systems Review of Systems Constitutional: No chills, No diaphoresis, No dizziness, No fever EENTM: see HPI, throat pain, throat swelling Respiratory: see HPI Gastrointestinal: no symptoms reported Genitourinary: no symptoms reported Musculoskeletal: no symptoms reported Skin: no symptoms reported Past Altlavh-Oxevey-Pitzer Hx Past Med/Social Hx: Reviewed Nursing Past Med/Soc Hx Patient Social History Recent Foreign Travel: No Contact w/Someone Who Travel: No Past Medical History Surgeries: Yes (foot surgery, ) Orthopedic Respiratory: No Cardiac: No Neurological: No Genitourinary: No Gastrointestinal: No Musculoskeletal: No Endocrine: No HEENT: No Cancer: No Psychosocial: No Integumentary: Yes (abscess) Family Medical History Heart Disease, Diabetes, Hypertension Physical Exam Vital Signs - First Documented 08/02/18 08/03/18 22:38 01:01 Temp 98.5 Pulse 90 Resp 20 B/P (MAP) 139/103 (115) Pulse Ox 100 O2 Delivery Room Air Capillary Refill : Height: 5'6.00" Weight: 227lbs. 4.0oz. 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, no motor/sensory deficits, alert, normal mood/affect, oriented x 3 Progress/Results/Core Measures Suspected Sepsis SIRS Temperature: Pulse: Respiratory Rate: Laboratory Tests 08/02/18 22:45: White Blood Count 22.4H Blood Pressure / Mean: Laboratory Tests 08/02/18 22:45: Creatinine 1.02, Platelet Count 190, Total Bilirubin 0.5 Results/Orders Lab Results Laboratory Tests Test 08/02/18 22:45 Range/Units White Blood Count 22.4 H 4.3-11.0 10^3/uL Red Blood Count 4.57 4.35-5.85 10^6/uL Hemoglobin 12.3 L 13.3-17.7 G/DL Hematocrit 37 L 40-54 % Mean Corpuscular Volume 81 80-99 FL Mean Corpuscular Hemoglobin 27 25-34 PG Mean Corpuscular Hemoglobin Concent 33 32-36 G/DL Red Cell Distribution Width 12.8 10.0-14.5 % Platelet Count 190 130-400 10^3/uL Mean Platelet Volume 9.0 7.4-10.4 FL Neutrophils (%) (Auto) 29 L 42-75 % Lymphocytes (%) (Auto) 67 H 12-44 % Monocytes (%) (Auto) 2 0-12 % Eosinophils (%) (Auto) 1 0-10 % Basophils (%) (Auto) 1 0-10 % Neutrophils # (Auto) 6.4 1.8-7.8 X 10^3 Lymphocytes # (Auto) 15.1 H 1.0-4.0 X 10^3 Monocytes # (Auto) 0.5 0.0-1.0 X 10^3 Eosinophils # (Auto) 0.1 0.0-0.3 10^3/uL Basophils # (Auto) 0.1 0.0-0.1 10^3/uL Neutrophils % (Manual) 32 % Lymphocytes % (Manual) 55 % Monocytes % (Manual) 1 % Band Neutrophils 1 % Reactive Lymphocytes 11 % Blood Morphology Comment NORMAL Sodium Level 138 135-145 MMOL/L Potassium Level 4.9 3.6-5.0 MMOL/L Chloride Level 102 98-107 MMOL/L Carbon Dioxide Level 26 21-32 MMOL/L Anion Gap 10 5-14 MMOL/L Blood Urea Nitrogen 14 7-18 MG/DL Creatinine 1.02 0.60-1.30 MG/DL Estimat Glomerular Filtration Rate > 60 BUN/Creatinine Ratio 14 Glucose Level 107 H 70-105 MG/DL Calcium Level 8.7 8.5-10.1 MG/DL Corrected Calcium 8.8 8.5-10.1 MG/DL Total Bilirubin 0.5 0.1-1.0 MG/DL Aspartate Amino Transf (AST/SGOT) 19 5-34 U/L Alanine Aminotransferase (ALT/SGPT) 26 0-55 U/L Alkaline Phosphatase 82 40-136 U/L Total Protein 7.3 6.4-8.2 GM/DL Albumin 3.9 3.2-4.5 GM/DL My Orders Orders - ANDRAE MAYER DO Ct Neck (Soft Tissue) W (08/02/18 22:41) Ceftriaxone For Iv Use (Rocephin For I (08/02/18 22:45) Cbc With Automated Diff (08/02/18 22:41) Comprehensive Metabolic Panel (08/02/18 22:41) Dexamethasone Injection (Decadron Inject (08/02/18 22:45) Iohexol Injection (Omnipaque 350 Mg/Ml 1 (08/02/18 23:00) Di Iv Start (Assessment) .IV start (08/02/18 22:58) Received Contrast (Hold Metformin- Contr (08/02/18 23:00) Ns (Ivpb) (Sodium Chloride 0.9% Ivpb Bag (08/02/18 23:00) Sodium Chloride Flush (Catheter Flush Sy (08/02/18 23:00) Manual Differential (08/02/18 22:45) Medications Given in ED Current Medications Medications Dose Ordered Sig/Tone Route Start Time Stop Time Status Last Admin Dose Admin Ceftriaxone Sodium 2000 mg/ Sterile Water 20 ml @ 240 mls/hr ONCE ONCE IV 08/02/18 22:45 08/02/18 22:49 DC 08/02/18 22:56 240 MLS/HR Dexamethasone Sodium Phosphate 10 mg ONCE ONCE IV 08/02/18 22:45 08/02/18 22:46 DC 08/02/18 22:58 10 MG Iohexol 100 ml ONCE ONCE IV 08/02/18 23:00 08/03/18 00:59 DC 08/02/18 23:06 100 ML Sodium Chloride 10 ml NEEDED PRN IV 08/02/18 23:00 08/03/18 00:59 DC 08/02/18 23:06 10 ML Sodium Chloride 100 ml ONCE ONCE IV 08/02/18 23:00 08/03/18 00:59 DC 08/02/18 23:06 100 ML Vital Signs/I&O 08/02/18 08/03/18 22:38 01:01 Temp 98.5 98.3 Pulse 90 84 Resp 20 18 B/P (MAP) 139/103 (115) 112/88 (96) Pulse Ox 100 O2 Delivery Room Air Room Air Capillary Refill : Progress Note : Progress Note Reviewed labs and CT with patient. Patient was able to tolerate by mouth without difficulty. CT showed no significant airway compromise. Did give patient 2 g of Rocephin. I recommended they continue their recently changed antibiotic from earlier today. Patient will be discharged home in stable condition. He should return to the ER as needed or follow up with his primary care next week for recheck of symptoms. Departure Impression Primary Impression: Acute tonsillitis Qualified Codes: J03.80 - Acute tonsillitis due to other specified organisms Disposition: 01 HOME, SELF-CARE Condition: Stable Departure-Patient Inst. Referrals: SELFANNA MD (PCP) Primary Care Physician Patient Instructions: Strep Throat (DC) ANDRAE MAYER DO August 02, 2018 22:48
[2018-08-02] MEDS ORDERED: NS 100 ML (IVPB) BAG IV ONE (23:00)
[2018-08-02] MEDS ORDERED: IOHEXOL 350 MG/ML 100 ML (OMNIPAQUE 350) VIAL IV ONE (23:00)
[2018-08-02] MEDS ORDERED: HOLD METFORMIN - RECEIVED CONTRAST 20 ML VIAL IV SCH (23:00)
[2018-08-02] MEDS ORDERED: CATHETER FLUSH 10 ML SYR IV PRN (23:00)
[2018-08-02 23:13] LABS: EOSINOPHILS % (AUTO) 1 % (0-10); HEMATOCRIT 37 % (40-54); HEMOGLOBIN 12.3 G/DL (13.3-17.7); LYMPHOCYTES # (AUTO) 15.1 X 10^3 (1.0-4.0); MEAN CORPUSCULAR HEMOGLOBIN 27 PG (25-34); MEAN CORPUSCULAR HGB CONC 33 G/DL (32-36); MEAN CORPUSCULAR VOLUME 81 FL (80-99); MONOCYTES % (AUTO) 2 % (0-12); NEUTROPHILS # (AUTO) 6.4 X 10^3 (1.8-7.8); NEUTROPHILS % (AUTO) 29 % (42-75); PLATELET COUNT 190 10^3/uL (130-400); RED CELL DISTRIBUTION WIDTH 12.8 % (10.0-14.5); WHITE BLOOD COUNT 22.4 10^3/uL (4.3-11.0)
[2018-08-02 23:14] LABS: BASOPHILS # (AUTO) 0.1 10^3/uL (0.0-0.1); BASOPHILS % (AUTO) 1 % (0-10); EOSINOPHILS # (AUTO) 0.1 10^3/uL (0.0-0.3); LYMPHOCYTES % (AUTO) 67 % (12-44); MONOCYTES # (AUTO) 0.5 X 10^3 (0.0-1.0)
[2018-08-02 23:22] LABS: BAND NEUTROPHILS 1 %; LYMPHOCYTES % (MANUAL) 55 %; MONOCYTES % (MANUAL) 1 %; NEUTROPHILS % (MANUAL) 32 %
[2018-08-02 23:23] LABS: BUN/CREATININE RATIO 14; CARBON DIOXIDE 26 MMOL/L (21-32); CHLORIDE 102 MMOL/L (98-107); CREATININE SERUM 1.02 MG/DL (0.60-1.30); GFR ESTIMATED > 60; POTASSIUM 4.9 MMOL/L (3.6-5.0); RBC MORPH NORMAL; REACTIVE LYMPHOCYTES 11 %; SODIUM 138 MMOL/L (135-145)
[2018-08-02 23:24] LABS: ALANINE AMINOTRANSFERASE 26 U/L (0-55); ALBUMIN 3.9 GM/DL (3.2-4.5); ALKALINE PHOSPHATASE 82 U/L (40-136); BILIRUBIN,TOTAL 0.5 MG/DL (0.1-1.0); CALCIUM 8.7 MG/DL (8.5-10.1); GLUCOSE 107 MG/DL (70-105); TOTAL PROTEIN 7.3 GM/DL (6.4-8.2)
[2018-08-03 01:01] VITALS: BP 112/88
--- OUTSIDE RECORDS SUMMARY | 2018-08-03 01:51 | XMS REPORT | Continuity of Care Document ---
Author Organization Unknown Address Unknown Allergies Active Description Code Type Severity Reaction Onset Reported/Identified Relationship to Patient Clinical Status Yes No Known Drug Allergies [id number] Drug Allergy Unknown N/A 06/11/2018 Yes tramadol [id number] Drug Allergy Unknown N/A 08/02/2018 Medications There is no data. Problems Date Dx Coded Attending Type Code Diagnosis Diagnosed By 06/12/2018 ABEBE JORDAN MD, Ot A41.9 SEPSIS, UNSPECIFIED ORGANISM 06/12/2018 ABEEB JORDAN MD Ot L02.413 CUTANEOUS ABSCESS OF RIGHT UPPER LIMB 06/12/2018 ABEBE JORDAN MD Ot L03.113 CELLULITIS OF RIGHT UPPER LIMB 06/12/2018 ABEBE JORDAN MD Ot A41.9 SEPSIS, UNSPECIFIED ORGANISM 06/12/2018 ABEBE JORDAN MD Ot L02.413 CUTANEOUS ABSCESS OF RIGHT UPPER LIMB 06/12/2018 ABEBE JORDAN MD Ot L03.113 CELLULITIS OF RIGHT UPPER LIMB 06/12/2018 ABEBE JORDAN MD Ot A41.9 SEPSIS, UNSPECIFIED ORGANISM 06/12/2018 ABEBE JORDAN MD Ot L02.413 CUTANEOUS ABSCESS OF RIGHT UPPER LIMB 06/12/2018 ABEBE JORDAN MD Ot L03.113 CELLULITIS OF RIGHT UPPER LIMB 06/12/2018 ABEBE JORDAN MD Ot A41.9 SEPSIS, UNSPECIFIED ORGANISM 06/12/2018 ABEBE JORDAN MD Ot L02.413 CUTANEOUS ABSCESS OF RIGHT UPPER LIMB 06/12/2018 ABEBE JORDAN MD Ot L03.113 CELLULITIS OF RIGHT UPPER LIMB 06/12/2018 ABEBE JORDAN MD Ot A41.9 SEPSIS, UNSPECIFIED ORGANISM 06/12/2018 ABEBE JORDAN MD Ot L02.413 CUTANEOUS ABSCESS OF RIGHT UPPER LIMB 06/12/2018 ABEBE JORDAN MD Ot L03.113 CELLULITIS OF RIGHT UPPER LIMB 06/13/2018 ABEBE JORDAN MD Ot A41.9 SEPSIS, UNSPECIFIED ORGANISM 06/13/2018 ABEBE JORDAN MD Ot L02.413 CUTANEOUS ABSCESS OF RIGHT UPPER LIMB 06/13/2018 ABEBE JORDAN MD Ot L03.113 CELLULITIS OF RIGHT UPPER LIMB 06/13/2018 ABEBE JORDAN MD Ot A41.9 SEPSIS, UNSPECIFIED ORGANISM 06/13/2018 ABEBE JORDAN MD Ot L02.413 CUTANEOUS ABSCESS OF RIGHT UPPER LIMB 06/13/2018 ABEBE JORDAN MD Ot L03.113 CELLULITIS OF RIGHT UPPER LIMB 06/13/2018 ABEBE JORDAN MD Ot A41.9 SEPSIS, UNSPECIFIED ORGANISM 06/13/2018 ABEBE JORDAN MD Ot L02.413 CUTANEOUS ABSCESS OF RIGHT UPPER LIMB 06/13/2018 ABEBE JORDAN MD Ot L03.113 CELLULITIS OF RIGHT UPPER LIMB 06/13/2018 ABEBE JORDAN MD Ot A41.9 SEPSIS, UNSPECIFIED ORGANISM 06/13/2018 ABEBE JORDAN MD Ot B18.1 CHRONIC VIRAL HEPATITIS B WITHOUT DELTA- 06/13/2018 ABEBE JORDAN MD Ot B18.2 CHRONIC VIRAL HEPATITIS C 06/13/2018 ABEBE JORDAN MD Ot C91.10 CHRONIC LYMPHOCYTIC LEUK OF B-CELL TYPE 06/13/2018 ABEBE JORDAN MD Ot L02.413 CUTANEOUS ABSCESS OF RIGHT UPPER LIMB 06/13/2018 ABEBE JORDAN MD Ot L03.113 CELLULITIS OF RIGHT UPPER LIMB 07/11/2018 CHRISTINA DACOSTA MD, Ot C91.10 CHRONIC LYMPHOCYTIC LEUK OF B-CELL TYPE 08/01/2018 CHRISTINA DACOSTA MD, Ot C91.10 CHRONIC LYMPHOCYTIC LEUK OF B-CELL TYPE 08/02/2018 CHRISTINA DACOSTA MD, Ot C91.10 CHRONIC LYMPHOCYTIC LEUK OF B-CELL TYPE 08/02/2018 CHRISTINA DACOSTA MD, Ot C91.10 CHRONIC LYMPHOCYTIC LEUK OF B-CELL TYPE 08/02/2018 CHRISTINA DACOSTA MD, Ot C91.10 CHRONIC LYMPHOCYTIC LEUK OF B-CELL TYPE Procedures Code Description Performed By Performed On [id number] EXTRACTION OF R LOW ARM SUBCU/FASCIA, OP 06/11/2018 Results Test Result Range Complete blood count (CBC) with automated white blood cell (WBC) differential - 06/11/18 12:18 Blood leukocytes automated count (number/volume) 16.5 10*3/uL 4.3-11.0 Blood erythrocytes automated count (number/volume) 4.53 10*6/uL 4.35-5.85 Venous blood hemoglobin measurement (mass/volume) 12.4 g/dL 13.3-17.7 Blood hematocrit (volume fraction) 37 % 40-54 Automated erythrocyte mean corpuscular volume 81 [foz_us] 80-99 Automated erythrocyte mean corpuscular hemoglobin (mass per erythrocyte) 27 pg 25-34 Automated erythrocyte mean corpuscular hemoglobin concentration measurement (mass/volume) 34 g/dL 32-36 Automated erythrocyte distribution width ratio 12.8 % 10.0- 14.5 Automated blood platelet count (count/volume) 189 10*3/uL 130-400 Automated blood platelet mean volume measurement 9.5 [foz_us] 7.4-10.4 Automated blood neutrophils/100 leukocytes 31 % 42-75 Automated blood lymphocytes/100 leukocytes 64 % 12-44 Blood monocytes/100 leukocytes 3 % 0-12 Automated blood eosinophils/100 leukocytes 1 % 0-10 Automated blood basophils/100 leukocytes 0 % 0-10 Blood neutrophils automated count (number/volume) 5.1 10*3 1.8-7.8 Blood lymphocytes automated count (number/volume) 10.6 10*3 1.0-4.0 Blood monocytes automated count (number/volume) 0.5 10*3 0.0- 1.0 Automated eosinophil count 0.2 10*3/uL 0.0-0.3 Automated blood basophil count (count/volume) 0.1 10*3/uL 0.0-0.1 Comprehensive metabolic panel - 06/11/18 12:18 Serum or plasma sodium measurement (moles/volume) 137 mmol/L 135-145 Serum or plasma potassium measurement (moles/volume) 4.3 mmol/L 3.6-5.0 Serum or plasma chloride measurement (moles/volume) 101 mmol/L 98-107 Carbon dioxide 25 mmol/L 21-32 Serum or plasma anion gap determination (moles/volume) 11 mmol/L 5-14 Serum or plasma urea nitrogen measurement (mass/volume) 9 mg/dL 7-18 Serum or plasma creatinine measurement (mass/volume) 0.88 mg/dL 0.60-1.30 Serum or plasma urea nitrogen/creatinine mass ratio 10 NRG Serum or plasma creatinine measurement with calculation of estimated glomerular filtration rate > NRG Serum or plasma glucose measurement (mass/volume) 96 mg/dL 70-105 Serum or plasma calcium measurement (mass/volume) 8.4 mg/dL 8.5-10.1 Serum or plasma total bilirubin measurement (mass/volume) 0.3 mg/dL 0.1-1.0 Serum or plasma alkaline phosphatase measurement (enzymatic activity/volume) 61 U/L 40-136 Serum or plasma aspartate aminotransferase measurement (enzymatic activity/volume) 18 U/L 5-34 Serum or plasma alanine aminotransferase measurement (enzymatic activity/volume) 23 U/L 0-55 Serum or plasma protein measurement (mass/volume) 6.6 g/dL 6.4-8.2 Serum or plasma albumin measurement (mass/volume) 3.4 g/dL 3.2-4.5 CALCIUM CORRECTED 8.9 mg/dL 8.5-10.1 Blood manual differential performed detection - 06/11/18 12:18 Blood monocytes/100 leukocytes 3 % NRG Manual blood segmented neutrophils/100 leukocytes 25 % NRG Blood band neutrophils/100 leukocytes 1 % NRG Manual blood lymphocytes/100 leukocytes 69 % NRG Manual eosinophils/100 leukocytes in nose 1 % NRG Manual blood basophils/100 leukocytes 1 % NRG Blood erythrocyte morphology finding identification NORMAL NRG PT panel in platelet poor plasma by coagulation assay - 06/11/18 12:18 Prothrombin time (PT) in platelet poor plasma by coagulation assay 14.0 s 12.2-14.7 INR in platelet poor plasma or blood by coagulation assay 1.1 0.8-1.4 Activated partial thromboplastin time (aPTT) in platelet poor plasma bycoagulation assay - 06/11/18 12:18 Activated partial thromboplastin time (aPTT) in platelet poor plasma bycoagulation assay 29 s 24-35 Blood lactic acid measurement (moles/volume) - 06/11/18 12:18 Blood lactic acid measurement (moles/volume) 0.82 mmol/L 0.50- 2.00 Pathologist review of blood test by comment - 06/11/18 12:18 Blood leukocytes automated count (number/volume) 16.5 10*3/uL 4.3-11.0 Blood erythrocytes automated count (number/volume) 4.53 10*6/uL 4.35-5.85 Venous blood hemoglobin measurement (mass/volume) 12.4 g/dL 13.3-17.7 Blood hematocrit (volume fraction) 37 % 40-54 Automated erythrocyte mean corpuscular volume 81 [foz_us] 80-99 Automated erythrocyte mean corpuscular hemoglobin (mass per erythrocyte) 27 pg 25-34 Automated erythrocyte mean corpuscular hemoglobin concentration measurement (mass/volume) 34 g/dL 32-36 Automated erythrocyte distribution width ratio 12.8 % 10.0- 14.5 Automated blood platelet count (count/volume) 189 10*3/uL 130-400 Automated blood platelet mean volume measurement 9.5 [foz_us] 7.4-10.4 Automated blood neutrophils/100 leukocytes 31 % 42-75 Automated blood lymphocytes/100 leukocytes 64 % 12-44 Blood monocytes/100 leukocytes 3 % NRG Automated blood eosinophils/100 leukocytes 1 % 0-10 Automated blood basophils/100 leukocytes 0 % 0-10 Blood neutrophils automated count (number/volume) 5.1 10*3 1.8-7.8 Blood lymphocytes automated count (number/volume) 10.6 10*3 1.0-4.0 Blood monocytes automated count (number/volume) 0.5 10*3 0.0- 1.0 Automated eosinophil count 0.2 10*3/uL 0.0-0.3 Automated blood basophil count (count/volume) 0.1 10*3/uL 0.0-0.1 Manual blood segmented neutrophils/100 leukocytes 25 % NRG Blood band neutrophils/100 leukocytes 1 % NRG Manual blood lymphocytes/100 leukocytes 69 % NRG Manual eosinophils/100 leukocytes in nose 1 % NRG Manual blood basophils/100 leukocytes 1 % NRG Blood erythrocyte morphology finding identification NORMAL NRG Blood reticulocytes count (number/volume) TNP 24-90 Blood reticulocytes/100 erythrocytes TNP 0.50-2.40 Bacterial blood culture - 06/11/18 12:18 FREE TEXT EXTERNAL SUSCEPTIBILITIES REPORTED 06-15-18 NRG QUANTITY OF GROWTH Isolated NRG Bacterial blood culture [id number] NRG RML SENSITIV[facility] - 06/11/18 12:18 Oxacillin susceptibility test by minimum inhibitory concentration > NRG Clindamycin susceptibility test by minimum inhibitory concentration > NRG Erythromycin susceptibility test by minimum inhibitory concentration > NRG Vancomycin susceptibility test by minimum inhibitory concentration 1 NRG Levofloxacin susceptibility test by minimum inhibitory concentration <= NRG Rifampin susceptibility test by minimum inhibitory concentration <= NRG Cefazolin susceptibility test by minimum inhibitory concentration R NRG Linezolid susceptibility test by minimum inhibitory concentration > NRG Penicillin G susceptibility test by minimum inhibitory concentration > NRG Moxifloxacin susceptibility test by minimum inhibitory concentration S NRG Minocycline susc LUCILLE <= NRG RML SENSITIV[facility] - 06/11/18 12:18 Oxacillin susceptibility test by minimum inhibitory concentration > NRG Clindamycin susceptibility test by minimum inhibitory concentration <= NRG Erythromycin susceptibility test by minimum inhibitory concentration <= NRG Vancomycin susceptibility test by minimum inhibitory concentration <= NRG Levofloxacin susceptibility test by minimum inhibitory concentration <= NRG Rifampin susceptibility test by minimum inhibitory concentration <= NRG Cefazolin susceptibility test by minimum inhibitory concentration R NRG Linezolid susceptibility test by minimum inhibitory concentration 2 NRG Penicillin G susceptibility test by minimum inhibitory concentration > NRG Moxifloxacin susceptibility test by minimum inhibitory concentration S NRG Minocycline susc LUCILLE <= NRG Bacterial blood culture - 06/11/18 12:44 Bacterial blood culture NG NRG Gram stain microscopy - 06/11/18 13:00 Gram stain microscopy Moderate gram positive cocci in chains NRG Bacteria identification in wound by culture - 06/11/18 13:00 Bacteria identification in wound by culture [id number] NR FREE TEXT EXTERNAL SUSCEPTIBILITY REPORTED 06-16-18 1604 NRG QUANTITY OF GROWTH Rare NRG RML KB Sensitivity Panel - 06/11/18 13:00 Vancomycin susceptibility test by agar diffusion S NRG LEVOFLOXACIN S NRG Clindamycin susceptibility test by agar diffusion S NRG Erythromycin susceptibility test by agar diffusion S NRG Linezolid susceptibility test by agar diffusion S NRG RML Sensitivity Panel - 06/11/18 13:00 Oxacillin susceptibility test by minimum inhibitory concentration > NRG Clindamycin susceptibility test by minimum inhibitory concentration > NRG Erythromycin susceptibility test by minimum inhibitory concentration > NRG Vancomycin susceptibility test by minimum inhibitory concentration 1 NRG Levofloxacin susceptibility test by minimum inhibitory concentration <= NRG Rifampin susceptibility test by minimum inhibitory concentration <= NRG Cefazolin susceptibility test by minimum inhibitory concentration R NRG Linezolid susceptibility test by minimum inhibitory concentration 2 NRG Penicillin G susceptibility test by minimum inhibitory concentration > NRG Moxifloxacin susceptibility test by minimum inhibitory concentration S NRG Minocycline susc LUCILLE <= NRG Complete blood count (CBC) with automated white blood cell (WBC) differential - 06/12/18 04:05 Blood leukocytes automated count (number/volume) 8.5 10*3/uL 4.3-11.0 Blood erythrocytes automated count (number/volume) 4.01 10*6/uL 4.35-5.85 Venous blood hemoglobin measurement (mass/volume) 11.0 g/dL 13.3-17.7 Blood hematocrit (volume fraction) 33 % 40-54 Automated erythrocyte mean corpuscular volume 82 [foz_us] 80-99 Automated erythrocyte mean corpuscular hemoglobin (mass per erythrocyte) 27 pg 25-34 Automated erythrocyte mean corpuscular hemoglobin concentration measurement (mass/volume) 33 g/dL 32-36 Automated erythrocyte distribution width ratio 13.4 % 10.0- 14.5 Automated blood platelet count (count/volume) 146 10*3/uL 130-400 Automated blood platelet mean volume measurement 9.6 [foz_us] 7.4-10.4 Automated blood neutrophils/100 leukocytes 35 % 42-75 Automated blood lymphocytes/100 leukocytes 60 % 12-44 Blood monocytes/100 leukocytes 3 % 0-12 Automated blood eosinophils/100 leukocytes 2 % 0-10 Automated blood basophils/100 leukocytes 0 % 0-10 Blood neutrophils automated count (number/volume) 2.9 10*3 1.8-7.8 Blood lymphocytes automated count (number/volume) 5.1 10*3 1.0-4.0 Blood monocytes automated count (number/volume) 0.3 10*3 0.0- 1.0 Automated eosinophil count 0.2 10*3/uL 0.0-0.3 Automated blood basophil count (count/volume) 0.0 10*3/uL 0.0-0.1 Whole blood basic metabolic panel - 06/12/18 04:05 Serum or plasma sodium measurement (moles/volume) 139 mmol/L 135-145 Serum or plasma potassium measurement (moles/volume) 3.8 mmol/L 3.6-5.0 Serum or plasma chloride measurement (moles/volume) 113 mmol/L 98-107 Carbon dioxide 20 mmol/L 21-32 Serum or plasma anion gap determination (moles/volume) 6 mmol/L 5-14 Serum or plasma urea nitrogen measurement (mass/volume) 10 mg/dL 7-18 Serum or plasma creatinine measurement (mass/volume) 0.75 mg/dL 0.60-1.30 Serum or plasma urea nitrogen/creatinine mass ratio 13 NRG Serum or plasma creatinine measurement with calculation of estimated glomerular filtration rate > NRG Serum or plasma glucose measurement (mass/volume) 125 mg/dL 70-105 Serum or plasma calcium measurement (mass/volume) 8.1 mg/dL 8.5-10.1 Complete blood count (CBC) with automated white blood cell (WBC) differential - 06/13/18 02:15 Blood leukocytes automated count (number/volume) 13.0 10*3/uL 4.3-11.0 Blood erythrocytes automated count (number/volume) 4.30 10*6/uL 4.35-5.85 Venous blood hemoglobin measurement (mass/volume) 12.0 g/dL 13.3-17.7 Blood hematocrit (volume fraction) 35 % 40-54 Automated erythrocyte mean corpuscular volume 80 [foz_us] 80-99 Automated erythrocyte mean corpuscular hemoglobin (mass per erythrocyte) 28 pg 25-34 Automated erythrocyte mean corpuscular hemoglobin concentration measurement (mass/volume) 35 g/dL 32-36 Automated erythrocyte distribution width ratio 12.7 % 10.0- 14.5 Automated blood platelet count (count/volume) 162 10*3/uL 130-400 Automated blood platelet mean volume measurement 9.1 [foz_us] 7.4-10.4 Automated blood neutrophils/100 leukocytes 27 % 42-75 Automated blood lymphocytes/100 leukocytes 68 % 12-44 Blood monocytes/100 leukocytes 3 % 0-12 Automated blood eosinophils/100 leukocytes 2 % 0-10 Automated blood basophils/100 leukocytes 0 % 0-10 Blood neutrophils automated count (number/volume) 3.5 10*3 1.8-7.8 Blood lymphocytes automated count (number/volume) 8.9 10*3 1.0-4.0 Blood monocytes automated count (number/volume) 0.3 10*3 0.0- 1.0 Automated eosinophil count 0.3 10*3/uL 0.0-0.3 Automated blood basophil count (count/volume) 0.0 10*3/uL 0.0-0.1 Comprehensive metabolic panel - 06/13/18 02:15 Serum or plasma sodium measurement (moles/volume) 138 mmol/L 135-145 Serum or plasma potassium measurement (moles/volume) 4.0 mmol/L 3.6-5.0 Serum or plasma chloride measurement (moles/volume) 105 mmol/L 98-107 Carbon dioxide 25 mmol/L 21-32 Serum or plasma anion gap determination (moles/volume) 8 mmol/L 5-14 Serum or plasma urea nitrogen measurement (mass/volume) 8 mg/dL 7-18 Serum or plasma creatinine measurement (mass/volume) 0.80 mg/dL 0.60-1.30 Serum or plasma urea nitrogen/creatinine mass ratio 10 NRG Serum or plasma creatinine measurement with calculation of estimated glomerular filtration rate > NRG Serum or plasma glucose measurement (mass/volume) 95 mg/dL 70-105 Serum or plasma calcium measurement (mass/volume) 8.9 mg/dL 8.5-10.1 Serum or plasma total bilirubin measurement (mass/volume) 0.2 mg/dL 0.1-1.0 Serum or plasma alkaline phosphatase measurement (enzymatic activity/volume) 62 U/L 40-136 Serum or plasma aspartate aminotransferase measurement (enzymatic activity/volume) 23 U/L 5-34 Serum or plasma alanine aminotransferase measurement (enzymatic activity/volume) 32 U/L 0-55 Serum or plasma protein measurement (mass/volume) 6.1 g/dL 6.4-8.2 Serum or plasma albumin measurement (mass/volume) 3.4 g/dL 3.2-4.5 CALCIUM CORRECTED 9.4 mg/dL 8.5-10.1 Vancomycin trough - 06/13/18 02:15 Vancomycin trough 9.7 ug/mL 10.0-20.0 [id number] - 06/13/18 02:15 [id number] 114 % 48-271 Immunoglobulin panel (IgG, IgM, IgA) serum 20 % 71-263 [id number] - 06/13/18 12:30 [id number] Blood NRG Clinical or research indication for test [PhenX] CLL NRG Cells.ALK gene rearrangements/Cells counted in Blood or Tissue by Fluorescent in situ hybridization (FISH) See Report NRG IGHV MUTATION - 06/13/18 12:30 [id number] Non Mutated NRG Complete blood count (CBC) with automated white blood cell (WBC) differential - 08/02/18 22:45 Blood leukocytes automated count (number/volume) 22.4 10*3/uL 4.3-11.0 Blood erythrocytes automated count (number/volume) 4.57 10*6/uL 4.35-5.85 Venous blood hemoglobin measurement (mass/volume) 12.3 g/dL 13.3-17.7 Blood hematocrit (volume fraction) 37 % 40-54 Automated erythrocyte mean corpuscular volume 81 [foz_us] 80-99 Automated erythrocyte mean corpuscular hemoglobin (mass per erythrocyte) 27 pg 25-34 Automated erythrocyte mean corpuscular hemoglobin concentration measurement (mass/volume) 33 g/dL 32-36 Automated erythrocyte distribution width ratio 12.8 % 10.0- 14.5 Automated blood platelet count (count/volume) 190 10*3/uL 130-400 Automated blood platelet mean volume measurement 9.0 [foz_us] 7.4-10.4 Automated blood neutrophils/100 leukocytes 29 % 42-75 Automated blood lymphocytes/100 leukocytes 67 % 12-44 Blood monocytes/100 leukocytes 2 % 0-12 Automated blood eosinophils/100 leukocytes 1 % 0-10 Automated blood basophils/100 leukocytes 1 % 0-10 Blood neutrophils automated count (number/volume) 6.4 10*3 1.8-7.8 Blood lymphocytes automated count (number/volume) 15.1 10*3 1.0-4.0 Blood monocytes automated count (number/volume) 0.5 10*3 0.0- 1.0 Automated eosinophil count 0.1 10*3/uL 0.0-0.3 Automated blood basophil count (count/volume) 0.1 10*3/uL 0.0-0.1 Blood manual differential performed detection - 08/02/18 22:45 Blood monocytes/100 leukocytes 1 % NRG Manual blood segmented neutrophils/100 leukocytes 32 % NRG Blood band neutrophils/100 leukocytes 1 % NRG Manual blood lymphocytes/100 leukocytes 55 % NRG Blood lymphocytes variant/100 leukocytes 11 % NRG Blood erythrocyte morphology finding identification NORMAL NR Comprehensive metabolic panel - 08/02/18 22:45 Serum or plasma sodium measurement (moles/volume) 138 mmol/L 135-145 Serum or plasma potassium measurement (moles/volume) 4.9 mmol/L 3.6-5.0 Serum or plasma chloride measurement (moles/volume) 102 mmol/L 98-107 Carbon dioxide 26 mmol/L 21-32 Serum or plasma anion gap determination (moles/volume) 10 mmol/L 5-14 Serum or plasma urea nitrogen measurement (mass/volume) 14 mg/dL 7-18 Serum or plasma creatinine measurement (mass/volume) 1.02 mg/dL 0.60-1.30 Serum or plasma urea nitrogen/creatinine mass ratio 14 NRG Serum or plasma creatinine measurement with calculation of estimated glomerular filtration rate > NRG Serum or plasma glucose measurement (mass/volume) 107 mg/dL 70-105 Serum or plasma calcium measurement (mass/volume) 8.7 mg/dL 8.5-10.1 Serum or plasma total bilirubin measurement (mass/volume) 0.5 mg/dL 0.1-1.0 Serum or plasma alkaline phosphatase measurement (enzymatic activity/volume) 82 U/L 40-136 Serum or plasma aspartate aminotransferase measurement (enzymatic activity/volume) 19 U/L 5-34 Serum or plasma alanine aminotransferase measurement (enzymatic activity/volume) 26 U/L 0-55 Serum or plasma protein measurement (mass/volume) 7.3 g/dL 6.4-8.2 Serum or plasma albumin measurement (mass/volume) 3.9 g/dL 3.2-4.5 CALCIUM CORRECTED 8.8 mg/dL 8.5-10.1 Encounters ACCT No. Visit Date/Time Discharge Status Pt. Type Provider Facility Loc./Unit Complaint [id number] 07/16/2018 14:45:00 07/16/2018 23:59:59 CLS Outpatient [facility] [id number] 07/05/2018 11:45:00 07/05/2018 23:59:59 CLS Preadmit CHRISTINA DACOSTA MD [facility] RAD CLL,HEPATITIS [id number] 07/03/2018 14:37:00 07/03/2018 23:59:59 CLS Outpatient CHRISTINA DACOSTA MD [facility] ONC [id number] 08/02/2018 22:33:00 ACT Emergency MAYER DO, ANDRAE L [facility] ER FS THROAT SWOLLEN, SOB [id number] 06/11/2018 14:16:00 ACT Inpatient NIKKI VALDEZ, ABEBE Lam [facility] 4TH ABSCESS; CELLULITIS; SEPSIS
--- NOTE | 2018-08-03 07:20 | Diagnostic Imaging Report ---
PROCEDURE: CT neck soft tissue with contrast. TECHNIQUE: Multiple contiguous axial images were obtained through the neck after the administration of contrast. Auto Exposure Controls were utilized during the CT exam to meet ALARA standards for radiation dose reduction. INDICATION: Swollen airway, difficulty swallowing. COMPARISON: None available. FINDINGS: The tonsillar pillars are severely enlarged resulting in narrowing of the airway. Additionally, extensive bilateral cervical adenopathy is present. This includes a left submandibular lymph node which measures 3.8 x 3.1 x 2.2 cm. The thyroid gland is unremarkable. No focal fluid collection. Parapharyngeal fat is symmetric. Muscles of mastication are unremarkable. Minimally visualized intracranial contents are unremarkable. No acute osseous abnormality. Visualized paranasal sinuses are clear. Straightening of the normal cervical lordosis. IMPRESSION: 1. Significant enlargement of the bilateral tonsillar pillars resulting in significant narrowing of the airway. 2. Extensive bilateral cervical adenopathy. This is of uncertain etiology, though concerning for an infiltrative process such as lymphoma. Recommend clinical correlation. Fine-needle aspiration may be indicated as clinically necessary. Agree with preliminary interpretation. Dictated by: Dictated on workstation # [id number]
== END 2018-08-03 00:58 | disposition home or self-care (01) ==
LOC: EDUNIT# 22:31 → ER FS 22:33
DX: J03.90 Acute tonsillitis, unspecified (principal); Z88.5 Allergy status to narcotic agent; Z85.6 Personal history of leukemia; Z82.49 Family history of ischemic heart disease and other diseases of the circulatory system
CPT/HCPCS: 36415; 70491; 80053; 85007; 85027